=== PATIENT | female | born 1955 | race Caucasian/White ===

== ENCOUNTER 2019-04-13 07:13 | Day surgery (SDC) | payer OTHER ==
--- OUTSIDE RECORDS SUMMARY | 2019-04-13 07:16 | XMS REPORT | Summary of Care ---
:1955 Author Name SAGE LOZADA M.D. Address [place] [facility] Unavailable , Care Team Providers Name Role Phone ISAIAS JAEGER M.D., SAGE Unavailable Unavailable GRETCHEN Smith, KRISTEN Unavailable Unavailable NICOLE GLEASON, ZAKIYA Mijares Unavailable Unavailable DOUG GLEASON [place], ARIC Almazan Unavailable Unavailable GRETCHEN GLEASON, KRISTEN Carr Unavailable Unavailable LUIZ, SAGE Unavailable Unavailable Unavailable Unavailable Unavailable Functional Status Name Dates Details Functional status health issues are not documented Status: Name Dates Details Cognitive status health issues are not documented Status: Problems Name Dates Details Left elbow pain (719.42, M25.522) Status: Active Lateral epicondylitis of left elbow (726.32, M77.12) Status: Active Carpal tunnel syndrome of left wrist (354.0, G56.02) Status: Active Left knee pain, unspecified chronicity (719.46, M25.562) Status: Active Primary osteoarthritis of left knee (715.16, M17.12) Status: Active 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 Start : 25-Nov-2018 Active Colace 100 MG Oral Capsule TAKE 1 CAPSULE 3 TIMES DAILY. Quantity: 45 Refills: 0 KRISTEN GODINEZ M.D. Start : 25-Nov-2018 Active Allergies and Adverse Reactions Name Dates Details No Known Drug Allergies (Allergy) Status: Active Procedures Procedure Dates Details Procedures not documented Immunization Name Dates Details Immunizations not documented Social History Name Dates Details Unknown if ever smoked Vital Signs Date Test Result Details No Known Vitals to report Results Date Description Value Details [id number] MRI Spine lumbar wo contrast 38741 Spine lumbar wo contrast SEE NOTES Comments: Patient Name: MARGARET JAVIERDOB: 1955; Age: 63 years FemaleMR: [id number]: Spine lumbar wo contrast MRI 04/06/2019 12:52 PM CDTClinical Indication: M54.16 Radiculopathy, lumbar region - M54.16 MRI Radiculopathy, lumbar region.COMPARISON: NoneTECHNIQUE: Multiplanar T1, T2, STIR weighted noncontrast MRI of the lumbarspine is performed on the 1.5 Adrienne magnet.FINDINGS:ALIGNMENT AND GENERAL ASSESSM ENT: Anterolisthesis of L3 on L4 measures 2.8 mm.Moderate disc degenerative changes at L3-L4. Moderate to severe discdegenerative changes with reactive endplate edema at L4-L5 There is nocompression fra cture. The anterior and posterior paraspinal soft tissues arenormal. The conus medullaris ends at the L1 level. For the sake ofnomenclature, five lumbar vertebrae are assumed.DISC SPACES:T12-L1: The di sc is normal. There is no central canal stenosis. There is noforaminal stenosis. The facet joints are normal.L1-L2: The disc is normal. There is no central canal stenosis. There is noforaminal sten osis. The facet joints are normal.L2-L3: The disc is normal. There is no central canal stenosis. There is noforaminal stenosis. The facet joints are normal.L3-L4: . Congenitally shortened pedicles and mild facet degenerative changes.Severe spinal canal stenosis. Spinal measures 5.2 mm. Diffuse disc uncoveringfrom anterolisthesis. Mild to moderate bilateral foraminal narrowing.L4-L5: Posterior disc b ulge asymmetric to the right. This extends into theright foramen. Bilateral recess stenosis worse on the right. Congenitally shortpedicles with moderate facet arthropathy. Severe spinal canal stenosis. Spinalmeasures 5.7 mm. Moderate left foraminal narrowing. Severe right foraminalnarrowing.L5-S1: Shallow posterior disc bulge. No spinal canal stenosis. Mild bilateralforaminal narrowing. Facet joints a re unremarkable.IMPRESSION:1. Severe spinal canal stenosis at L3-L4 and L4-L5.2. Congenital spinal canal stenosis with facet arthropathy at L3-L4 and L4-L5.3. Moderate left and severe right foraminal narrowing at L4-L5.SL: SIVAKUMAR--Read by: Chidi Hoictated Date/time: 04/06/19 13:55Electronically Signed by: Chidi Ho MD 04/06/1914:11FINAL REPORT Plan of Care Name Dates Details Planned Observations Planned Goals not documented Planned Encounters Pain Management Referral Appointment; ARIC CAMACHO M.D. On: 22-Apr-2019 11:00 Interventions Provided PlanPatient Education/Instructions: Patient Education Provided Reassurance MRI report reviewed and finding discussed with patient and family. Patient/Parent to call or return with any abnormal changes Orders: Referrals: Refer to: Dr. Mendel Faulkner, Dr. Gita Broderick. Refer to: Referral to a body technician/painter was provided. Reason: Evaluate and treat. Further evaluation. Follow Up: Return to the clinic in 6 weeks or as needed.Spinal stenosis:CLBP not resolved with PT or NSAIDs, no urinary or bowel symptoms- F/u with Dr. Faulkner for lumbar BINH- Pt with Medrol pack at home, will take after her colonoscopy in a few days- If no improvement f/u with Ortho spinal surgery for eval Instructions Name Dates Details Instructions not documented Encounters Appointment; KRISTEN GODINEZ M.D. On: 12-Oct-2018 10:00 Encounter Diagnosis: Problem not documented Appointment; MIMI MASON M.D. On: 27-Oct-2018 10:00 Encounter Diagnosis: Problem not documented Appointment; KRISTEN GODINEZ M.D. On: 16-Nov-2018 11:30 Encounter Diagnosis: Problem not documented Appointment; KRISTEN GODINEZ M.D. On: 25-Nov-2018 14:00 Encounter Diagnosis: Problem not documented Appointment; KRISTEN GODINEZ M.D. On: 09-Dec-2018 9:30 Encounter Diagnosis: Problem not documented Appointment; SAGE LOZADA M.D. On: 13-Jan-2019 13:15 Encounter Diagnosis: Problem not documented Appointment; ARIC CAMACHO M.D. On: 21-Jan-2019 13:15 Encounter Diagnosis: Problem not documented Appointment; SAGE LOZADA M.D. On: 21-Mar-2019 11:45 Encounter Diagnosis: Problem not documented Appointment; SAGE LOZADA M.D. On: 12-Apr-2019 10:45 Encounter Diagnosis: Problem not documented
--- OUTSIDE RECORDS SUMMARY | 2019-04-13 07:16 | XMS REPORT ---
:1955 Author Organization [facility] Address [address] [place] [address] [address] [place] [address] Care Team Providers Name Role Phone Unavailable Unavailable Unavailable Payers Payer Name Policy Type Policy Number Effective Date Expiration Date Problems This patient has no known problems. Allergies, Adverse Reactions, Alerts Allergy Allergy Status Severity Reaction(s) Onset Inactive Treating Comments Name Type Date Date Clinician No Known DA Active U 2018-07 Allergies -03 00:00:0 0 Medications This patient has no known medications.
[2019-04-13] MEDS ORDERED: NA CHLORIDE 0.9% 1,000 ML ONE ×2 (07:58→09:22)
[2019-04-13] MEDS ORDERED: PROPOFOL 200 MG/20 ML VIAL IV ONE ×2 (08:04→09:42)
[2019-04-13] MEDS ORDERED: LIDOCAINE 1% MPF 5 ML VIAL ONE (08:04)
--- NOTE | 2019-04-13 09:42 | ENDO RPT ---
[address], [address] EGD PROCEDURE REPORT EXAM DATE: 04/13/2019 PATIENT NAME: Lola Copeland MR#: [id number] BIRTHDATE: 1955 ATTENDING: Brennan Basilio DR STATUS: outpatient SEAT JOINER CHAINSTITCH: Jax Lazaro and Edyta Blackwell RN INDICATIONS: The patient is a 63 yr old Female here for an EGD due to GERD and epigastric pain PROCEDURE PERFORMED: EGD with biopsy for H. pylori MEDICATIONS: Per Anesthesia. TOPICAL ANESTHETIC: none CONSENT: The patient understands the risks and benefits of the procedure and understands that these risks include, but are not limited to: sedation, allergic reaction, infection, perforation and/or bleeding. Alternative means of evaluation and treatment include, among others: physical exam, x-rays, and/or surgical intervention. The patient elects to proceed with this endoscopic procedure. DESCRIPTION OF PROCEDURE: During intra-op preparation period all mechanical medical equipment was checked for proper function. Hand hygiene and appropriate measures for infection prevention was taken. Procedure, possible complications, and alternatives including but not limited to the possibility of bleeding, perforation, tear, infection, sepsis, need for surgery, need for blood transfusion, and anesthesia related complications were explained to the patient. After the risks, benefits and alternatives of the procedure were thoroughly explained, Informed consent was verified, confirmed and timeout was successfully executed by the treatment team. The patient was placed in the left lateral position. The patient was anesthetized with topical anesthesia. Through the anesthetized oropharyngeal area, the scope was passed without any difficulty. The EC-[id number] ([id number]) and [id number] ([id number]) endoscope was introduced through the mouth and advanced to the second portion of the duodenum. Retroflexed views revealed an erosion. The gastroscope was then slowly withdrawn and removed. Multiple erosions were found in the total stomach. A biopsy for H. pylori was taken. Multiple biopsies were obtained and sent to pathology. Duodenitis was found in the bulb and descending duodenum. A biopsy for H. pylori was taken. Multiple biopsies were obtained and sent to pathology. LA Class A esophagitis was found in the gastroesophageal junction. With standard forceps, a biopsy was obtained and sent to pathology. Multiple ulcers were found in the body and the antrum of the stomach. A biopsy for H. pylori was taken. ADVERSE EVENTS: There were no complications. IMPRESSIONS: 1. Multiple erosions were found in the total stomach 2. Duodenitis was found in the bulb and descending duodenum 3. LA Class A esophagitis was found in the gastroesophageal junction 4. Multiple ulcers were found in the body and the antrum of the stomach RECOMMENDATIONS: 1. acid suppression therapy 2. anti-reflux regimen 3. await biopsy results 4. follow-up: office 2 week(s) 5. avoid NSAIDS 6. follow-up of helicobacter pylori status, treat if indicated REPEAT EXAM: Brennan Basilio DR eSigned: Brennan Basilio DR 04/13/2019 9:41 AM cc: CPT CODES: ICD9 CODES: PATIENT NAME: Lola Copeland MR#: [id number]
--- NOTE | 2019-04-13 09:48 | ENDO RPT ---
[address], [address] COLONOSCOPY PROCEDURE REPORT EXAM DATE: 04/13/2019 PATIENT NAME: Lola Copeland MR #: [id number] BIRTHDATE: 1955 ATTENDING: Brennan Basilio DR STATUS: outpatient GAS TREATER: Jax Lazaro and Edyta Blackwell RN INDICATIONS: The patient is a 63 yr old Female here for a colonoscopy due to colon cancer screening PROCEDURE PERFORMED: Colonoscopy with biopsy - cold polypectomy MEDICATIONS: Per Anesthesia. ESTIMATED BLOOD LOSS: None CONSENT: The patient understands the risks and benefits of the procedure and understands that these risks include, but are not limited to: sedation, allergic reaction, infection, perforation and/or bleeding. Alternative means of evaluation and treatment include, among others: physical exam, x-rays, and/or surgical intervention. The patient elects to proceed with this endoscopic procedure. DESCRIPTION OF PROCEDURE: During intra-op preparation period all mechanical medical equipment was checked for proper function. Hand hygiene and appropriate measures for infection prevention was taken. Procedure, possible complications, alternatives including, but not limited to possibility of bleeding, perforation, tear, infection, sepsis, need for surgery, need for blood transfusion, were explained to the patient. After the risks, benefits and alternatives of the procedure were thoroughly explained, Informed consent was verified, confirmed and timeout was successfully executed by the treatment team. The patient was placed in the left lateral position. A digital rectal exam was performed and revealed internal hemorrhoids and A digital rectal exam was performed and revealed external hemorrhoids. After appropriate level of anesthesia, the scope was passed. The EC--[id number] ([id number]) endoscope was introduced through the anus and advanced to the cecum, which was identified by both the appendix and ileocecal valve. The quality of the prep was fair. The instrument was then slowly withdrawn as the colon was fully examined. Scope withdrawal time was 15 minutes. COLON FINDINGS: Multiple small medium sized smooth sessile polyps with friable surfaces were found in the transverse colon, at the splenic flexure, and in the rectosigmoid colon. A polypectomy was performed with cold forceps and with a cold snare. The resection was complete, the polyp tissue was completely retrieved and sent to histology. Moderate sized internal and external hemorrhoids were found. Retroflexed views revealed no abnormalities. The scope was then completely withdrawn from the patient and the procedure terminated. ADVERSE EVENTS: There were no complications. IMPRESSIONS: 1. Multiple small medium sized sessile polyps were found in the transverse colon, at the splenic flexure, and in the rectosigmoid colon; polypectomy was performed in a piecemeal fashion with cold forceps and with a cold snare 2. Moderate sized internal and external hemorrhoids RECOMMENDATIONS: 1. avoid NSAIDS for 2 weeks 2. await biopsy results 3. fiber rich diet 4. follow-up: office 2 week(s) 5. Monitor for any evidence of rectal bleeding. 6. hemorrhoidal hygiene 7. yearly hemoquant 8. increase dietary water RECALL: Return in 2 year(s) for Colonoscopy, pending biopsy results. Pending Biopsy Results Brennan Basilio DR eSigned: Brennan Basilio DR 04/13/2019 9:48 AM cc: CPT CODES: ICD9 CODES: PATIENT NAME: Lola Copeland MR#: [id number]
[2019-04-13 11:54] VITALS: BP 123/83; TEMP 98; O2SAT 100
== END 2019-04-13 10:12 | disposition home or self-care (01) ==
LOC: OR 07:13
PROVIDERS: ATTEND Surgery
PROC: 0DB98ZX Excision of Duodenum, Via Natural or Artificial Opening Endoscopic, Diagnostic (ICD-10-PCS; 2019-04-13)
PROC: 0DB78ZX Excision of Stomach, Pylorus, Via Natural or Artificial Opening Endoscopic, Diagnostic (ICD-10-PCS; 2019-04-13)
PROC: 0DB68ZX Excision of Stomach, Via Natural or Artificial Opening Endoscopic, Diagnostic (ICD-10-PCS; 2019-04-13)
PROC: 0DB48ZX Excision of Esophagogastric Junction, Via Natural or Artificial Opening Endoscopic, Diagnostic (ICD-10-PCS; 2019-04-13)
PROC: 0DBL8ZX Excision of Transverse Colon, Via Natural or Artificial Opening Endoscopic, Diagnostic (ICD-10-PCS; principal; 2019-04-13 08:30)
PROC: 0DBN8ZX Excision of Sigmoid Colon, Via Natural or Artificial Opening Endoscopic, Diagnostic (ICD-10-PCS; 2019-04-13 08:30)
DX: K21.0 Gastro-esophageal reflux disease with esophagitis (principal); K29.50 Unspecified chronic gastritis without bleeding; K25.9 Gastric ulcer, unspecified as acute or chronic, without hemorrhage or perforation; K29.80 Duodenitis without bleeding; D12.3 Benign neoplasm of transverse colon; D12.4 Benign neoplasm of descending colon; D12.7 Benign neoplasm of rectosigmoid junction; K64.8 Other hemorrhoids; K64.4 Residual hemorrhoidal skin tags; E11.9 Type 2 diabetes mellitus without complications; E78.00 Pure hypercholesterolemia, unspecified; Z86.010 Personal history of colon polyps; Z79.82 Long term (current) use of aspirin; F17.200 Nicotine dependence, unspecified, uncomplicated; Z91.02 Food additives allergy status
CPT/HCPCS: 45380; 45385; 43239; 88312; 88313; 82962 ×2; 88305; J2704 ×2; J7030 ×2

== ENCOUNTER 2021-08-09 03:49 | Emergency (ER) | payer OTHER ==
--- OUTSIDE RECORDS SUMMARY | 2021-08-09 03:56 | XMS REPORT | Continuity of Care Document ---
:1955 Author Organization [facility] t Address [address] [place] [address] Care Team Providers Name Role Phone Joby Dyllan Primary Care Physician YANCY Attending Clinician Unavailable Carrie HAINES Attending Clinician Unavailable Brenton GLEASON, Not In Attending Clinician Unavailable Jaimee FLANAGAN Attending Clinician Unavailable Андрей FLANAGAN Attending Clinician Unavailable Angelina GLEASON Attending Clinician JESSIE JAIN Attending Clinician Unavailable Graham Sutton DO Attending Clinician Doctor Unassigned, Name Attending Clinician Unavailable TEGAN Attending Clinician Unavailable Celi GLEASON Attending Clinician CELI Attending Clinician Unavailable DOUG Attending Clinician Unavailable ISAIAS JAEGER Attending Clinician Unavailable GRETCHEN Attending Clinician Unavailable MARLON Attending Clinician Unavailable Payers Payer Name Policy Type Policy Number Effective Date Expiration Date Lilly lieberman [facility] MEDIC[facility] [id number] 2020 ADVANTAGE 00:00:00 Problems Condition Condition Condition Status Onset Resolution Last Treating Co mments Source Name Details Category Date Date Treatment Clinician Date Calcific Calcific Disease Active [facility] Achilles Achilles 8-25 Health tendinitis tendinitis 00:00: of left of left 00 lower lower extremity extremity Left foot Left foot Disease Active [facility] pain pain 8-25 Health 00:00: 00 Tibial Tibial Disease Active [facility] plateau plateau 2-24 ity of fracture fracture 00:00: [place] [facility] Tibial Tibial Disease Active [facility] plateau plateau 2-23 [place] of fracture[place], [place], [place] [facility] closed, closed, Branch initial initial encounter encounter Type 2 Type 2 Disease Active [facility] diabetes diabetes 2-20 ity of mellitus mellitus 00:00: [place] with stage with stage 00 Me dical 3 chronic 3 chronic Bran ch kidney kidney disease, disease, with with long-term long-term current current use of use of insulin insulin Dyslipidem Dyslipidem Disease Active U nivers ia ia 2-20 ity of 00:00: [place] 00 [facility] Coronary Coronary Disease Active Unive rs artery artery 2-20 ity of disease disease 00:00: [place] involving involving 00 Medi cheng [place] Branch heart heart without without angina angina pectoris, pectoris, unspecifie unspecifie d vessel d vessel or lesion or lesion type type Left elbow Left elbow Problem Active U nivers pain pain ity of [place] [facility] ans Lateral Lateral Problem Active [facility] epicondyli epicondyli it y of tis of tis of [place] left elbow left elbow Ph ysici ans Carpal Carpal Problem Active [facility] tunnel tunnel ity of syndrome syndrome [place] of left of left Physici wrist wrist ans Left knee Left knee Problem Active Uni vers pain, pain, it[place] of [place]spec[place]spec[place]ie [place] [facility] chronicity chronicity an s Primary Primary Problem Active Univers osteoarthr osteoarthr it y of itis of itis of [place] left knee left knee Phys ici ans Lumbar Lumbar Problem Active [facility] adjacent adjacent ity of segment segment [place] disease disease Physici with with ans spondyloli spondyloli sthesis sthesis Lumbar Lumbar Problem Active [facility] radiculopa radiculopa it y of thy thy [place] [facility] ans Lumbar Lumbar Problem Active [facility] foraminal foraminal ity of stenosis stenosis [place] [facility] [place] Problem Active [facility] spinal spinal ity of stenosis stenosis [place] [facility] Encounter Encounter Problem Active Uni vers for for ity of administra administra [place] of tion of Physici COVID-19 COVID-19 ans vaccine vaccine Allergies, Adverse Reactions, Alerts Allergy Allergy Status Severity Reaction(s) Onset Inactive Treating Comm ents Source Name Type Date Date Clinician Erythrom Allergy Active Other [facility] ycin to 6-22 reaction( Health substanc 00:00: s): e 00 Nausea Methocar Allergy Active Other [facility] bamol to 6-22 reaction( Health substanc 00:00: s): e 00 Terrors No Known DA Active U 2017-08 [facility] Allergie 09-02 Clear s 00:00: [place] 00 [facility] STATINS- Drug Active Unknown-Cmnt Un donna HMG-COA Class 2-20 ity of REDUCTAS 00:00: [place] E 00 Medical INHIBITO Branch RS Statins- Propensi Active Unknown - Stiffness Univers Hmg-Coa ty to See comments 2-20 ity of Reductas adverse 00:00: [place] e reaction 00 Medical Inhibito s Branch rs Social History Social Habit Start Date Stop Date Quantity Comments Source History SDOH [facility] Alcohol Std Drinks History SDCA [facility] Alcohol Binge Exposure to Not sure [facility] SARS-CoV-2 (event) History SDCA [facility] Alcohol Comment Tobacco use and 2021-04-15 2021-04-15 Smokeless tobacco [facility] exposure 00:00:00 00:00:00 non-user History SDOH 2021-04-15 2021-04-15 1 [facility] Alcohol Frequency 00:00:00 00:00:00 Alcohol intake 2020-09-24 2020-09-24 University 00:00:00 00:00:00 [facility] Sex Ass[birth year] At [birth year] Univers[facility] y of 00:00:00 00:00:00 [place] [facility] Smoking Status Start Date Stop Date Source Never smoked tobacco [facility] Current every day smoker 2020-09-24 00:00:00 [facility] Medications Ordered Filled Start Stop Current Ordering Indication Dosage Frequency Signature Comments Components Source Medication Medication Date Date Medication? Clinician (SIG) Name Name Diclofenac 2020-08 Yes [id number] Q.5D Apply [facility] Sodium 1-04 topically Health (Voltaren) 00:00: 2 (two) 1 % 00 times a external day. gel Diclofenac 2020-08 Yes [id number] Q.5D Apply [facility] Sodium 1-04 topically Health (Voltaren) 00:00: 2 (two) 1 % 00 times a external day. gel HYDROcodone 2020-08- Yes [id number] 1{tbl} Take 1 UT -acetaminop 0-20 10-26 tablet by Koffi brooks ([employer]) 00:00: 04:59 mouth 7.5-325 MG 00 :00 every 4 tablet (four) hours if needed for severe pain for up to 5 days. HYDROcodone 2020-08- Yes [id number] 1{tbl} Take 1 UT -acetaminop 0-20 10-26 tablet by Koffi brooks ([employer]) 00:00: 04:59 mouth 7.5-325 MG 00 :00 every 4 tablet (four) hours if needed for severe pain for up to 5 days. Evolocumab Yes Repatha [facility] (Repatha) 8-25 Syringe Health 140 MG/ML 17:28: 140 mg/mL solution 13 subcutaneo prefilled us syringe syringe Inject by subcutaneo us route. ALPRAZolam Yes Xanax 1 mg U T (Xanax) 1 8-25 tablet Health MG tablet 17:28: Take by 13 oral route. lisinopril Yes QD 1 (one) UT 10 MG 8-25 time each Health tablet 17:28: day. 13 omeprazole Yes 1 (one) UT (PriLOSEC) 8-25 time each Heal th [address] 17:28: day at the capsule 13 same time. Evolocumab Yes Repatha [facility] (Repatha) 8-25 Syringe Health 140 MG/ML 17:28: 140 mg/mL solution 13 subcutaneo prefilled us syringe syringe Inject by subcutaneo us route. ALPRAZolam 2020-0 Yes Xanax 1 mg U T (Xanax) 1 8-25 tablet Health MG tablet 17:28: Take by 13 oral route. lisinopril 2020-0 Yes QD 1 (one) UT 10 MG 8-25 time each Health tablet 17:28: day. 13 omeprazole 2020-0 Yes 1 (one) UT (PriLOSEC) 8-25 time each Heal th [address] 17:28: day at the capsule 13 same time. Evolocumab 2020-0 Yes Repatha [facility] (Repatha) 8-25 Syringe Health 140 MG/ML 17:28: 140 mg/mL solution 13 subcutaneo prefilled us syringe syringe Inject by subcutaneo us route. ALPRAZolam 0 Yes Xanax 1 mg U T (Xanax) 1 8-25 tablet Health MG tablet 17:28: Take by 13 oral route. lisinopril 2020-0 Yes QD 1 (one) UT 10 MG 8-25 time each Health tablet 17:28: day. 13 omeprazole 2020-0 Yes 1 (one) UT (PriLOSEC) 8-25 time each Heal th [address] 17:28: day at the capsule 13 same time. Evolocumab 2020-0 Yes Repatha [facility] (Repatha) 8-25 Syringe Health 140 MG/ML 17:28: 140 mg/mL solution 13 subcutaneo prefilled us syringe syringe Inject by subcutaneo us route. ALPRAZolam 2020-0 Yes Xanax 1 mg U T (Xanax) 1 8-25 tablet Health MG tablet 17:28: Take by 13 oral route. lisinopril 2020-0 Yes QD 1 (one) UT 10 MG 8-25 time each Health tablet 17:28: day. 13 omeprazole 2020-0 Yes 1 (one) UT (PriLOSEC) 8-25 time each Heal th [address] 17:28: day at the capsule 13 same time. Evolocumab 2020-0 Yes Repatha [facility] (Repatha) 8-25 Syringe Health 140 MG/ML 12:28: 140 mg/mL solution 13 subcutaneo prefilled us syringe syringe Inject by subcutaneo us route. ALPRAZolam 2020-0 Yes Xanax 1 mg U T (Xanax) 1 8-25 tablet Health MG tablet 12:28: Take by 13 oral route. lisinopril 1-0 Yes QD 1 (one) UT 10 MG 8-25 time each Health tablet 12:28: day. 13 omeprazole 2020-0 Yes 1 (one) UT (PriLOSEC) 8-25 time each Heal th [address] 12:28: day at the capsule 13 same time. Evolocumab 2020-0 Yes Repatha [facility] (Repatha) 8-25 Syringe Health 140 MG/ML 12:28: 140 mg/mL solution 13 subcutaneo prefilled us syringe syringe Inject by subcutaneo us route. ALPRAZolam 2020-0 Yes Xanax 1 mg U T (Xanax) 1 8-25 tablet Health MG tablet 12:28: Take by 13 oral route. lisinopril 2020-0 Yes QD 1 (one) UT 10 MG 8-25 time each Health tablet 12:28: day. 13 omeprazole 2020-0 Yes 1 (one) UT (PriLOSEC) 8-25 time each Heal th [address] 12:28: day at the capsule 13 same time. Evolocumab 2020-0 Yes Repatha [facility] (Repatha) 8-25 Syringe Health 140 MG/ML 12:28: 140 mg/mL solution 13 subcutaneo prefilled us syringe syringe Inject by subcutaneo us route. ALPRAZolam 0 Yes Xanax 1 mg U T (Xanax) 1 8-25 tablet Health MG tablet 12:28: Take by 13 oral route. lisinopril 2020-0 Yes QD 1 (one) UT 10 MG 8-25 time each Health tablet 12:28: day. 13 omeprazole 2020-0 Yes 1 (one) UT (PriLOSEC) 8-25 time each Heal th [address] 12:28: day at the capsule 13 same time. Evolocumab 2020-0 Yes Repatha [facility] (Repatha) 8-25 Syringe Health 140 MG/ML 12:28: 140 mg/mL solution 13 subcutaneo prefilled us syringe syringe Inject by subcutaneo us route. ALPRAZolam 2020-0 Yes Xanax 1 mg U T (Xanax) 1 8-25 tablet Health MG tablet 12:28: Take by 13 oral route. lisinopril 2020-0 Yes QD 1 (one) UT 10 MG 8-25 time each Health tablet 12:28: day. 13 omeprazole 2020-0 Yes 1 (one) UT (PriLOSEC) 8-25 time each Heal th [address] 12:28: day at the capsule 13 same time. Evolocumab 2020-0 Yes Repatha [facility] (Repatha) 8-25 Syringe Health 140 MG/ML 12:28: 140 mg/mL solution 13 subcutaneo prefilled us syringe syringe Inject by subcutaneo us route. ALPRAZolam 2020-0 Yes Xanax 1 mg U T (Xanax) 1 8-25 tablet Health MG tablet 12:28: Take by 13 oral route. lisinopril 2020-0 Yes QD 1 (one) UT 10 MG 8-25 time each Health tablet 12:28: day. 13 omeprazole 2020-0 Yes 1 (one) UT (PriLOSEC) 8-25 time each Heal th [address] 12:28: day at the capsule 13 same time. Evolocumab 2020-0 Yes Repatha [facility] (Repatha) 8-25 Syringe Health 140 MG/ML 12:28: 140 mg/mL solution 13 subcutaneo prefilled us syringe syringe Inject by subcutaneo us route. ALPRAZolam 2020-0 Yes Xanax 1 mg U T (Xanax) 1 8-25 tablet Health MG tablet 12:28: Take by 13 oral route. lisinopril 2020-0 Yes QD 1 (one) UT 10 MG 8-25 time each Health tablet 12:28: day. 13 omeprazole 2020-0 Yes 1 (one) UT (PriLOSEC) 8-25 time each Heal th [address] 12:28: day at the capsule 13 same time. Evolocumab 2020-0 Yes Repatha [facility] (Repatha) 8-25 Syringe Health 140 MG/ML 12:28: 140 mg/mL solution 13 subcutaneo prefilled us syringe syringe Inject by subcutaneo us route. ALPRAZolam 2020-0 Yes Xanax 1 mg U T (Xanax) 1 8-25 tablet Health MG tablet 12:28: Take by 13 oral route. lisinopril 2020-0 Yes QD 1 (one) UT 10 MG 8-25 time each Health tablet 12:28: day. 13 omeprazole 2020-0 Yes 1 (one) UT (PriLOSEC) 8-25 time each Heal th [address] 12:28: day at the capsule 13 same time. Evolocumab 2020-0 Yes Repatha [facility] (Repatha) 8-25 Syringe Health 140 MG/ML 12:28: 140 mg/mL solution 13 subcutaneo prefilled us syringe syringe Inject by subcutaneo us route. ALPRAZolam 2020-0 Yes Xanax 1 mg U T (Xanax) 1 8-25 tablet Health MG tablet 12:28: Take by 13 oral route. lisinopril 2020-0 Yes QD 1 (one) UT 10 MG 8-25 time each Health tablet 12:28: day. 13 omeprazole 2020-0 Yes 1 (one) UT (PriLOSEC) 8-25 time each Heal th [address] 12:28: day at the capsule 13 same time. Evolocumab 2020-0 Yes Repatha [facility] (Repatha) 8-25 Syringe Health 140 MG/ML 12:28: 140 mg/mL solution 13 subcutaneo prefilled us syringe syringe Inject by subcutaneo us route. ALPRAZolam 2020-0 Yes Xanax 1 mg U T (Xanax) 1 8-25 tablet Health MG tablet 12:28: Take by 13 oral route. lisinopril 2020-0 Yes QD 1 (one) UT 10 MG 8-25 time each Health tablet 12:28: day. 13 omeprazole 2020-0 Yes 1 (one) UT (PriLOSEC) 8-25 time each Heal th [address] 12:28: day at the capsule 13 same time. Evolocumab 2020-0 Yes Repatha [facility] (Repatha) 8-25 Syringe Health 140 MG/ML 12:28: 140 mg/mL solution 13 subcutaneo prefilled us syringe syringe Inject by subcutaneo us route. ALPRAZolam 2020-0 Yes Xanax 1 mg U T (Xanax) 1 8-25 tablet Health MG tablet 12:28: Take by 13 oral route. lisinopril 2020-0 Yes QD 1 (one) UT 10 MG 8-25 time each Health tablet 12:28: day. 13 omeprazole 2020-0 Yes 1 (one) UT (PriLOSEC) 8-25 time each Heal th [address] 12:28: day at the capsule 13 same time. Turmeric 0 Yes Take by UT 500 MG 8-16 mouth. Health capsule 17:03: 57 Biotin 1000 2020-0 Yes 3000ug QD Chew 3,000 UT MCG 8-16 mcg 1 Health chewable 17:03: (one) time tablet 57 each day. Melatonin 2020-0 Yes Take by UT 10 MG 8-16 mouth. Health tablet 17:03: 57 Multiple 0 Yes 1{tbl} QD Take 1 UT Vitamin 8-16 tablet by Health (multivitam 17:03: mouth 1 in) tablet 57 (one) time each day. traMADol Yes Take by UT (Ultram) 50 8-16 mouth. Health MG tablet 17:03: 57 gabapentin 0 Yes Take by UT (Neurontin) 8-16 mouth. Health 600 MG 17:03: tablet 57 Insulin 2020-0 Yes UT Regular 8-16 Health Human 17:03: (NOVOLIN R 57 FLEXPEN IJ) insulin 2020-0 Yes UT NPH-insulin 8-16 Health regular 17:03: (NovoLIN 57 70/30) (70-30) 100 UNIT/ML injection ezetimibe 2020-0 Yes 1 (one) UT (Zetia) 10 8-16 time each Heal th MG tablet 17:03: day at the 57 same time. ALPRAZolam 2020-0 Yes Q12H every 12 UT (Xanax) 1 8-16 (twelve) Health MG tablet 17:03: hours. 57 lisinopril 2020-0 Yes 1 (one) UT 10 MG 8-16 time each Health tablet 17:03: day at the 57 same time. aspirin 2020-0 Yes 1 (one) UT (Aspir-Low) 8-16 time each Hea lth 81 MG EC 17:03: day at the tablet 57 same time. omeprazole 0 Yes 20mg QD Take 20 mg U T (PriLOSEC) 8-16 by mouth 1 Hea lth [address] 17:03: (one) time capsule 57 each day. Do not crush or chew. Garlic 1000 0 Yes Take by UT MG capsule 8-16 mouth. Health 17:03: 57 Turmeric 0 Yes Take by UT 500 MG 8-16 mouth. Health capsule 17:03: 57 Biotin 1000 0 Yes 3000ug QD Chew 3,000 UT MCG 8-16 mcg 1 Health chewable 17:03: (one) time tablet 57 each day. Melatonin 0 Yes Take by UT 10 MG 8-16 mouth. Health tablet 17:03: 57 Multiple 0 Yes 1{tbl} QD Take 1 UT Vitamin 8-16 tablet by Health (multivitam 17:03: mouth 1 in) tablet 57 (one) time each day. traMADol Yes Take by UT (Ultram) 50 8-16 mouth. Health MG tablet 17:03: 57 gabapentin 0 Yes Take by UT (Neurontin) 8-16 mouth. Health 600 MG 17:03: tablet 57 Insulin 0 Yes UT Regular 8-16 Health Human 17:03: (NOVOLIN R 57 FLEXPEN IJ) insulin 0 Yes UT NPH-insulin 8-16 Health regular 17:03: (NovoLIN 57 70/30) (70-30) 100 UNIT/ML injection ezetimibe 0 Yes 1 (one) UT (Zetia) 10 8-16 time each Heal th MG tablet 17:03: day at the 57 same time. ALPRAZolam 0 Yes Q12H every 12 UT (Xanax) 1 8-16 (twelve) Health MG tablet 17:03: hours. 57 lisinopril 0 Yes 1 (one) UT 10 MG 8-16 time each Health tablet 17:03: day at the 57 same time. aspirin 0 Yes 1 (one) UT (Aspir-Low) 8-16 time each Hea lth 81 MG EC 17:03: day at the tablet 57 same time. omeprazole Yes 20mg QD Take 20 mg U T (PriLOSEC) 8-16 by mouth 1 Hea lth [address] 17:03: (one) time capsule 57 each day. Do not crush or chew. Garlic 1000 0 Yes Take by UT MG capsule 8-16 mouth. Health 17:03: 57 Turmeric 0 Yes Take by UT 500 MG 8-16 mouth. Health capsule 17:03: 57 Biotin 1000 0 Yes 3000ug QD Chew 3,000 UT MCG 8-16 mcg 1 Health chewable 17:03: (one) time tablet 57 each day. Melatonin 2020-0 Yes Take by UT 10 MG 8-16 mouth. Health tablet 17:03: 57 Multiple 2020-0 Yes 1{tbl} QD Take 1 UT Vitamin 8-16 tablet by Health (multivitam 17:03: mouth 1 in) tablet 57 (one) time each day. traMADol 0 Yes Take by UT (Ultram) 50 8-16 mouth. Health MG tablet 17:03: 57 gabapentin 0 Yes Take by UT (Neurontin) 8-16 mouth. Health 600 MG 17:03: tablet 57 Insulin 0 Yes UT Regular 8-16 Health Human 17:03: (NOVOLIN R 57 FLEXPEN IJ) insulin 0 Yes UT NPH-insulin 8-16 Health regular 17:03: (NovoLIN 57 70/30) (70-30) 100 UNIT/ML injection ezetimibe 0 Yes 1 (one) UT (Zetia) 10 8-16 time each Heal th MG tablet 17:03: day at the 57 same time. ALPRAZolam 0 Yes Q12H every 12 UT (Xanax) 1 8-16 (twelve) Health MG tablet 17:03: hours. 57 lisinopril 0 Yes 1 (one) UT 10 MG 8-16 time each Health tablet 17:03: day at the 57 same time. aspirin 2020-0 Yes 1 (one) UT (Aspir-Low) 8-16 time each Hea lth 81 MG EC 17:03: day at the tablet 57 same time. omeprazole 0 Yes 20mg QD Take 20 mg U T (PriLOSEC) 8-16 by mouth 1 Hea lth 20 MG 17:03: (one) time capsule 57 each day. Do not crush or chew. Garlic 1000 2021-0 Yes Take by UT MG capsule 8-16 mouth. Health 17:03: 57 Turmeric 0 Yes Take by UT 500 MG 8-16 mouth. Health capsule 17:03: 57 Biotin 1000 0 Yes 3000ug QD Chew 3,000 UT MCG 8-16 mcg 1 Health chewable 17:03: (one) time tablet 57 each day. Melatonin 2020-0 Yes Take by UT 10 MG 8-16 mouth. Health tablet 17:03: 57 Multiple 2020-0 Yes 1{tbl} QD Take 1 UT Vitamin 8-16 tablet by Health (multivitam 17:03: mouth 1 in) tablet 57 (one) time each day. traMADol 0 Yes Take by UT (Ultram) 50 8-16 mouth. Health MG tablet 17:03: 57 gabapentin 0 Yes Take by UT (Neurontin) 8-16 mouth. Health 600 MG 17:03: tablet 57 Insulin 2020-0 Yes UT Regular 8-16 Health Human 17:03: (NOVOLIN R 57 FLEXPEN IJ) insulin 2020-0 Yes UT NPH-insulin 8-16 Health regular 17:03: (NovoLIN 57 70/30) (70-30) 100 UNIT/ML injection ezetimibe 0 Yes 1 (one) UT (Zetia) 10 8-16 time each Heal th MG tablet 17:03: day at the 57 same time. ALPRAZolam 2020-0 Yes Q12H every 12 UT (Xanax) 1 8-16 (twelve) Health MG tablet 17:03: hours. 57 lisinopril 2020-0 Yes 1 (one) UT 10 MG 8-16 time each Health tablet 17:03: day at the 57 same time. aspirin 2020-0 Yes 1 (one) UT (Aspir-Low) 8-16 time each Hea lth 81 MG EC 17:03: day at the tablet 57 same time. omeprazole 2020-0 Yes 20mg QD Take 20 mg U T (PriLOSEC) 8-16 by mouth 1 Hea lth [address] 17:03: (one) time capsule 57 each day. Do not crush or chew. Garlic 1000 0 Yes Take by UT MG capsule 8-16 mouth. Health 17:03: 57 Turmeric 0 Yes Take by UT 500 MG 8-16 mouth. Health capsule 17:03: 57 Biotin 1000 0 Yes 3000ug QD Chew 3,000 UT MCG 8-16 mcg 1 Health chewable 17:03: (one) time tablet 57 each day. Melatonin 0 Yes Take by UT 10 MG 8-16 mouth. Health tablet 17:03: 57 Multiple 2020-0 Yes 1{tbl} QD Take 1 UT Vitamin 8-16 tablet by Health (multivitam 17:03: mouth 1 in) tablet 57 (one) time each day. traMADol 0 Yes Take by UT (Ultram) 50 8-16 mouth. Health MG tablet 17:03: 57 gabapentin 0 Yes Take by UT (Neurontin) 8-16 mouth. Health 600 MG 17:03: tablet 57 Insulin 2020-0 Yes UT Regular 8-16 Health Human 17:03: (NOVOLIN R 57 FLEXPEN IJ) insulin 2020-0 Yes UT NPH-insulin 8-16 Health regular 17:03: (NovoLIN 57 70/30) (70-30) 100 UNIT/ML injection ezetimibe Yes 1 (one) UT (Zetia) 10 8-16 time each Heal th MG tablet 17:03: day at the 57 same time. ALPRAZolam 0 Yes Q12H every 12 UT (Xanax) 1 8-16 (twelve) Health MG tablet 17:03: hours. 57 lisinopril 0 Yes 1 (one) UT 10 MG 8-16 time each Health tablet 17:03: day at the 57 same time. aspirin Yes 1 (one) UT (Aspir-Low) 8-16 time each Hea lth 81 MG EC 17:03: day at the tablet 57 same time. omeprazole 0 Yes 20mg QD Take 20 mg U T (PriLOSEC) 8-16 by mouth 1 Hea lth [address] 17:03: (one) time capsule 57 each day. Do not crush or chew. Garlic 1000 0 Yes Take by UT MG capsule 8-16 mouth. Health 17:03: 57 ezetimibe 2020-0 Yes 1 (one) UT (Zetia) 10 8-16 time each Heal th MG tablet 12:03: day at the 57 same time. ALPRAZolam 2020-0 Yes Q12H every 12 UT (Xanax) 1 8-16 (twelve) Health MG tablet 12:03: hours. 57 lisinopril 0 Yes 1 (one) UT 10 MG 8-16 time each Health tablet 12:03: day at the 57 same time. aspirin 0 Yes 1 (one) UT (Aspir-Low) 8-16 time each Hea lth 81 MG EC 12:03: day at the tablet 57 same time. omeprazole 0 Yes 20mg QD Take 20 mg U T (PriLOSEC) 8-16 by mouth 1 [facility]a lth [address] 12:03: (one) time capsule 57 each day. Do not crush or chew. Garlic 1000 0 Yes Take by UT MG capsule 8-16 mouth. Health 12:03: 57 Turmeric 0 Yes Take by UT 500 MG 8-16 mouth. Health capsule 12:03: 57 Biotin 1000 Yes 3000ug QD Chew 3,000 UT MCG 8-16 mcg 1 Health chewable 12:03: (one) time tablet 57 each day. Melatonin 0 Yes Take by UT 10 MG 8-16 mouth. Health tablet 12:03: 57 Multiple 0 Yes 1{tbl} QD Take 1 UT Vitamin 8-16 tablet by Health (multivitam 12:03: mouth 1 in) tablet 57 (one) time each day. traMADol 0 Yes Take by UT (Ultram) 50 8-16 mouth. Health MG tablet 12:03: 57 gabapentin 0 Yes Take by UT (Neurontin) 8-16 mouth. Health 600 MG 12:03: tablet 57 Insulin 2020-0 Yes UT Regular 8-16 Health Human 12:03: (NOVOLIN R 57 FLEXPEN IJ) insulin 2020-0 Yes UT NPH-insulin 8-16 Health regular 12:03: (NovoLIN 57 70/30) (70-30) 100 UNIT/ML injection ezetimibe 2020-0 Yes 1 (one) UT (Zetia) 10 8-16 time each Heal th MG tablet 12:03: day at the 57 same time. ALPRAZolam 2020-0 Yes Q12H every 12 UT (Xanax) 1 8-16 (twelve) Health MG tablet 12:03: hours. 57 lisinopril 2020-0 Yes 1 (one) UT 10 MG 8-16 time each Health tablet 12:03: day at the 57 same time. aspirin 2020-0 Yes 1 (one) UT (Aspir-Low) 8-16 time each Hea lth 81 MG EC 12:03: day at the tablet 57 same time. omeprazole 2020-0 Yes 20mg QD Take 20 mg U T (PriLOSEC) 8-16 by mouth 1 Hea lth [address] 12:03: (one) time capsule 57 each day. Do not crush or chew. Garlic 1000 0 Yes Take by UT MG capsule 8-16 mouth. Health 12:03: 57 Turmeric 0 Yes Take by UT 500 MG 8-16 mouth. Health capsule 12:03: 57 Biotin 1000 0 Yes 3000ug QD Chew 3,000 UT MCG 8-16 mcg 1 Health chewable 12:03: (one) time tablet 57 each day. Melatonin 2020-0 Yes Take by UT 10 MG 8-16 mouth. Health tablet 12:03: 57 Multiple 2020-0 Yes 1{tbl} QD Take 1 UT Vitamin 8-16 tablet by Health (multivitam 12:03: mouth 1 in) tablet 57 (one) time each day. traMADol 0 Yes Take by UT (Ultram) 50 8-16 mouth. Health MG tablet 12:03: 57 gabapentin 0 Yes Take by UT (Neurontin) 8-16 mouth. Health 600 MG 12:03: tablet 57 Insulin 2020-0 Yes UT Regular 8-16 Health Human 12:03: (NOVOLIN R 57 FLEXPEN IJ) insulin 2020-0 Yes UT NPH-insulin 8-16 Health regular 12:03: (NovoLIN 57 70/30) (70-30) 100 UNIT/ML injection ezetimibe 2020-0 Yes 1 (one) UT (Zetia) 10 8-16 time each Heal th MG tablet 12:03: day at the 57 same time. ALPRAZolam 2020-0 Yes Q12H every 12 UT (Xanax) 1 8-16 (twelve) Health MG tablet 12:03: hours. 57 lisinopril 2020-0 Yes 1 (one) UT 10 MG 8-16 time each Health tablet 12:03: day at the 57 same time. aspirin 2020-0 Yes 1 (one) UT (Aspir-Low) 8-16 time each Hea lth 81 MG EC 12:03: day at the tablet 57 same time. omeprazole 0 Yes 20mg QD Take 20 mg U T (PriLOSEC) 8-16 by mouth 1 Hea lth [address] 12:03: (one) time capsule 57 each day. Do not crush or chew. Garlic 1000 2020-0 Yes Take by UT MG capsule 8-16 mouth. Health 12:03: 57 Turmeric 0 Yes Take by UT 500 MG 8-16 mouth. Health capsule 12:03: 57 Biotin 1000 0 Yes 3000ug QD Chew 3,000 UT MCG 8-16 mcg 1 Health chewable 12:03: (one) time tablet 57 each day. Melatonin 2020-0 Yes Take by UT 10 MG 8-16 mouth. Health tablet 12:03: 57 Multiple 2020-0 Yes 1{tbl} QD Take 1 UT Vitamin 8-16 tablet by Health (multivitam 12:03: mouth 1 in) tablet 57 (one) time each day. traMADol 0 Yes Take by UT (Ultram) 50 8-16 mouth. Health MG tablet 12:03: 57 gabapentin 0 Yes Take by UT (Neurontin) 8-16 mouth. Health 600 MG 12:03: tablet 57 Insulin 2020-0 Yes UT Regular 8-16 Health Human 12:03: (NOVOLIN R 57 FLEXPEN IJ) insulin 2020-0 Yes UT NPH-insulin 8-16 Health regular 12:03: (NovoLIN 57 70/30) (70-30) 100 UNIT/ML injection ezetimibe 2020-0 Yes 1 (one) UT (Zetia) 10 8-16 time each Heal th MG tablet 12:03: day at the 57 same time. ALPRAZolam 2020-0 Yes Q12H every 12 UT (Xanax) 1 8-16 (twelve) Health MG tablet 12:03: hours. 57 lisinopril 2020-0 Yes 1 (one) UT 10 MG 8-16 time each Health tablet 12:03: day at the 57 same time. aspirin 2021-0 Yes 1 (one) UT (Aspir-Low) 8-16 time each Hea lth 81 MG EC 12:03: day at the tablet 57 same time. omeprazole 0 Yes 20mg QD Take 20 mg U T (PriLOSEC) 8-16 by mouth 1 [facility]a l[facility] [address] 12:03: (one) time capsule 57 each day. Do not crush or chew. Garlic 1000 0 Yes Take by UT MG capsule 8-16 mouth. Health 12:03: 57 Turmeric 0 Yes Take by UT 500 MG 8-16 mouth. Health capsule 12:03: 57 Biotin 1000 0 Yes 3000ug QD Chew 3,000 UT MCG 8-16 mcg 1 Health chewable 12:03: (one) time tablet 57 each day. Melatonin 0 Yes Take by UT 10 MG 8-16 mouth. Health tablet 12:03: 57 Multiple 0 Yes 1{tbl} QD Take 1 UT Vitamin 8-16 tablet by Health (multivitam 12:03: mouth 1 in) tablet 57 (one) time each day. traMADol Yes Take by UT (Ultram) 50 8-16 mouth. Health MG tablet 12:03: 57 gabapentin 0 Yes Take by UT (Neurontin) 8-16 mouth. Health 600 MG 12:03: tablet 57 Insulin 0 Yes UT Regular 8-16 Health Human 12:03: (NOVOLIN R 57 FLEXPEN IJ) insulin 0 Yes UT NPH-insulin 8-16 Health regular 12:03: (NovoLIN 57 70/30) (70-30) 100 UNIT/ML injection ezetimibe 0 Yes 1 (one) UT (Zetia) 10 8-16 time each Heal th MG tablet 12:03: day at the 57 same time. ALPRAZolam 2020-0 Yes Q12H every 12 UT (Xanax) 1 8-16 (twelve) Health MG tablet 12:03: hours. 57 lisinopril 2020-0 Yes 1 (one) UT 10 MG 8-16 time each Health tablet 12:03: day at the 57 same time. aspirin 2020-0 Yes 1 (one) UT (Aspir-Low) 8-16 time each Hea lth 81 MG EC 12:03: day at the tablet 57 same time. omeprazole 0 Yes 20mg QD Take 20 mg U T (PriLOSEC) 8-16 by mouth 1 [facility]a l[facility] [address] 12:03: (one) time capsule 57 each day. Do not crush or chew. Garlic 1000 0 Yes Take by UT MG capsule 8-16 mouth. Health 12:03: 57 Turmeric 0 Yes Take by UT 500 MG 8-16 mouth. Health capsule 12:03: 57 Biotin 1000 0 Yes 3000ug QD Chew 3,000 UT MCG 8-16 mcg 1 Health chewable 12:03: (one) time tablet 57 each day. Melatonin 2020-0 Yes Take by UT 10 MG 8-16 mouth. Health tablet 12:03: 57 Multiple 2020-0 Yes 1{tbl} QD Take 1 UT Vitamin 8-16 tablet by Health (multivitam 12:03: mouth 1 in) tablet 57 (one) time each day. traMADol 0 Yes Take by UT (Ultram) 50 8-16 mouth. Health MG tablet 12:03: 57 gabapentin 0 Yes Take by UT (Neurontin) 8-16 mouth. Health 600 MG 12:03: tablet 57 Insulin 2020-0 Yes UT Regular 8-16 Health Human 12:03: (NOVOLIN R 57 FLEXPEN IJ) insulin 2020-0 Yes UT NPH-insulin 8-16 Health regular 12:03: (NovoLIN 57 70/30) (70-30) 100 UNIT/ML injection ezetimibe 2020-0 Yes 1 (one) UT (Zetia) 10 8-16 time each Heal th MG tablet 12:03: day at the 57 same time. ALPRAZolam 2020-0 Yes Q12H every 12 UT (Xanax) 1 8-16 (twelve) Health MG tablet 12:03: hours. 57 lisinopril 2020-0 Yes 1 (one) UT 10 MG 8-16 time each Health tablet 12:03: day at the 57 same time. aspirin 2020-0 Yes 1 (one) UT (Aspir-Low) 8-16 time each Hea lth 81 MG EC 12:03: day at the tablet 57 same time. omeprazole 2020-0 Yes 20mg QD Take 20 mg U T (PriLOSEC) 8-16 by mouth 1 [facility] [address] 12:03: (one) time capsule 57 each day. Do not crush or chew. Garlic 1000 0 Yes Take by UT MG capsule 8-16 mouth. Health 12:03: 57 Turmeric 0 Yes Take by UT 500 MG 8-16 mouth. Health capsule 12:03: 57 Biotin 1000 0 Yes 3000ug QD Chew 3,000 UT MCG 8-16 mcg 1 Health chewable 12:03: (one) time tablet 57 each day. Melatonin 0 Yes Take by UT 10 MG 8-16 mouth. Health tablet 12:03: 57 Multiple 0 Yes 1{tbl} QD Take 1 UT Vitamin 8-16 tablet by Health (multivitam 12:03: mouth 1 in) tablet 57 (one) time each day. traMADol Yes Take by UT (Ultram) 50 8-16 mouth. Health MG tablet 12:03: 57 gabapentin 0 Yes Take by UT (Neurontin) 8-16 mouth. Health 600 MG 12:03: tablet 57 Insulin 0 Yes UT Regular 8-16 Health Human 12:03: (NOVOLIN R 57 FLEXPEN IJ) insulin 0 Yes UT NPH-insulin 8-16 Health regular 12:03: (NovoLIN 57 70/30) (70-30) 100 UNIT/ML injection ezetimibe 0 Yes 1 (one) UT (Zetia) 10 8-16 time each Heal th MG tablet 12:03: day at the 57 same time. ALPRAZolam 0 Yes Q12H every 12 UT (Xanax) 1 8-16 (twelve) Health MG tablet 12:03: hours. 57 lisinopril 0 Yes 1 (one) UT 10 MG 8-16 time each Health tablet 12:03: day at the 57 same time. aspirin 2020-0 Yes 1 (one) UT (Aspir-Low) 8-16 time each Hea lth 81 MG EC 12:03: day at the tablet 57 same time. omeprazole 0 Yes 20mg QD Take 20 mg U T (PriLOSEC) 8-16 by mouth 1 [facility] [address] 12:03: (one) time capsule 57 each day. Do not crush or chew. Garlic 1000 Yes Take by UT MG capsule 8-16 mouth. Health 12:03: 57 Turmeric 0 Yes Take by UT 500 MG 8-16 mouth. Health capsule 12:03: 57 Biotin 1000 0 Yes 3000ug QD Chew 3,000 UT MCG 8-16 mcg 1 Health chewable 12:03: (one) time tablet 57 each day. Melatonin 2020-0 Yes Take by UT 10 MG 8-16 mouth. Health tablet 12:03: 57 Multiple 2020-0 Yes 1{tbl} QD Take 1 UT Vitamin 8-16 tablet by Health (multivitam 12:03: mouth 1 in) tablet 57 (one) time each day. traMADol Yes Take by UT (Ultram) 50 8-16 mouth. Health MG tablet 12:03: 57 gabapentin Yes Take by UT (Neurontin) 8-16 mouth. Health 600 MG 12:03: tablet 57 Insulin 0 Yes UT Regular 8-16 Health Human 12:03: (NOVOLIN R 57 FLEXPEN IJ) insulin 0 Yes UT NPH-insulin 8-16 Health regular 12:03: (NovoLIN 57 70/30) (70-30) 100 UNIT/ML injection ezetimibe 0 Yes 1 (one) UT (Zetia) 10 8-16 time each Heal th MG tablet 12:03: day at the 57 same time. ALPRAZolam 0 Yes Q12H every 12 UT (Xanax) 1 8-16 (twelve) Health MG tablet 12:03: hours. 57 lisinopril 2020-0 Yes 1 (one) UT 10 MG 8-16 time each Health tablet 12:03: day at the 57 same time. aspirin 2020-0 Yes 1 (one) UT (Aspir-Low) 8-16 time each Hea lth 81 MG EC 12:03: day at the tablet 57 same time. omeprazole 0 Yes 20mg QD Take 20 mg U T (PriLOSEC) 8-16 by mouth 1 [facility] [address] 12:03: (one) time capsule 57 each day. Do not crush or chew. Garlic 1000 0 Yes Take by UT MG capsule 8-16 mouth. Health 12:03: 57 Turmeric 0 Yes Take by UT 500 MG 8-16 mouth. Health capsule 12:03: 57 Biotin 1000 0 Yes 3000ug QD Chew 3,000 UT MCG 8-16 mcg 1 Health chewable 12:03: (one) time tablet 57 each day. Melatonin 2020-0 Yes Take by UT 10 MG 8-16 mouth. Health tablet 12:03: 57 Multiple 2020-0 Yes 1{tbl} QD Take 1 UT Vitamin 8-16 tablet by Health (multivitam 12:03: mouth 1 in) tablet 57 (one) time each day. traMADol 0 Yes Take by UT (Ultram) 50 8-16 mouth. Health MG tablet 12:03: 57 gabapentin 0 Yes Take by UT (Neurontin) 8-16 mouth. Health 600 MG 12:03: tablet 57 Insulin 0 Yes UT Regular 8-16 Health Human 12:03: (NOVOLIN R 57 FLEXPEN IJ) insulin 0 Yes UT NPH-insulin 8-16 Health regular 12:03: (NovoLIN 57 70/30) (70-30) 100 UNIT/ML injection ezetimibe 0 Yes 1 (one) UT (Zetia) 10 8-16 time each Heal th MG tablet 12:03: day at the 57 same time. ALPRAZolam 2020-0 Yes Q12H every 12 UT (Xanax) 1 8-16 (twelve) Health MG tablet 12:03: hours. 57 lisinopril 0 Yes 1 (one) UT 10 MG 8-16 time each Health tablet 12:03: day at the 57 same time. aspirin 0 Yes 1 (one) UT (Aspir-Low) 8-16 time each Hea lth 81 MG EC 12:03: day at the tablet 57 same time. omeprazole 0 Yes 20mg QD Take 20 mg U T (PriLOSEC) 8-16 by mouth 1 [facility] [address] 12:03: (one) time capsule 57 each day. Do not crush or chew. Garlic 1000 0 Yes Take by UT MG capsule 8-16 mouth. Health 12:03: 57 Turmeric 0 Yes Take by UT 500 MG 8-16 mouth. Health capsule 12:03: 57 Biotin 1000 0 Yes 3000ug QD Chew 3,000 UT MCG 8-16 mcg 1 Health chewable 12:03: (one) time tablet 57 each day. Melatonin 2020-0 Yes Take by UT 10 MG 8-16 mouth. Health tablet 12:03: 57 Multiple 2020-0 Yes 1{tbl} QD Take 1 UT Vitamin 8-16 tablet by Health (multivitam 12:03: mouth 1 in) tablet 57 (one) time each day. traMADol 0 Yes Take by UT (Ultram) 50 8-16 mouth. Health MG tablet 12:03: 57 gabapentin 0 Yes Take by UT (Neurontin) 8-16 mouth. Health 600 MG 12:03: tablet 57 Insulin 0 Yes UT Regular 8-16 Health Human 12:03: (NOVOLIN R 57 FLEXPEN IJ) insulin 2020-0 Yes UT NPH-insulin 8-16 Health regular 12:03: (NovoLIN 57 70/30) (70-30) 100 UNIT/ML injection ezetimibe Yes 1 (one) UT (Zetia) 10 8-16 time each Heal th MG tablet 12:03: day at the 57 same time. ALPRAZolam 0 Yes Q12H every 12 UT (Xanax) 1 8-16 (twelve) Health MG tablet 12:03: hours. 57 lisinopril 0 Yes 1 (one) UT 10 MG 8-16 time each Health tablet 12:03: day at the 57 same time. aspirin Yes 1 (one) UT (Aspir-Low) 8-16 time each Hea lth 81 MG EC 12:03: day at the tablet 57 same time. omeprazole 0 Yes 20mg QD Take 20 mg U T (PriLOSEC) 8-16 by mouth 1 [facility]a [facility] [address] 12:03: (one) time capsule 57 each day. Do not crush or chew. Garlic 1000 0 Yes Take by UT MG capsule 8-16 mouth. Health 12:03: 57 Turmeric 0 Yes Take by UT 500 MG 8-16 mouth. Health capsule 12:03: 57 Biotin 1000 0 Yes 3000ug QD Chew 3,000 UT MCG 8-16 mcg 1 Health chewable 12:03: (one) time tablet 57 each day. Melatonin Yes Take by UT 10 MG 8-16 mouth. Health tablet 12:03: 57 Multiple Yes 1{tbl} QD Take 1 UT Vitamin 8-16 tablet by Health (multivitam 12:03: mouth 1 in) tablet 57 (one) time each day. traMADol Yes Take by UT (Ultram) 50 8-16 mouth. Health MG tablet 12:03: 57 gabapentin Yes Take by UT (Neurontin) 8-16 mouth. Health 600 MG 12:03: tablet 57 Insulin Yes UT Regular 8-16 Health Human 12:03: (NOVOLIN R 57 FLEXPEN IJ) insulin Yes UT NPH-insulin 8-16 Health regular 12:03: (NovoLIN 57 70/30) (70-30) 100 UNIT/ML injection Cyclobenzap Cyclobenzap Yes SAGE Take 1 Univers rine HCl - rine HCl - 9-10 LI-CHRISTOFER tablet by ity of 5 MG Oral 5 MG Oral 00:00: MIL M.D. mouth [place] Tablet Tablet 00 twice a Physici day ans Ondansetron Ondansetron Yes KRISTEN 1 Q12H TAKE 1 Univers HCl - 8 MG HCl - 8 MG 3-28 MANSOUR TABLET ity of Oral Tablet Oral Tablet 00:00: M.D. Every [place] 00 twelve Physici hours ans Colace 100 Colace 100 Yes KRISTEN Q0.3333D TAKE 1 Univers MG Oral MG Oral 3-28 MANSOUR CAPSULE 3 i ty of Capsule Capsule 00:00: M.D. TIMES [place] 00 DAILY. Physici ans ASPIRIN Yes 81mg Take 81 mg Univ ers (ASPIR-81 6-09 by mouth ity of ORAL) 16:45: daily. [address] MULTIVIT-NM Yes Take by Un donna NERALS/FERR 6-09 mouth ity of OUS FUM 16:45: daily. [place] ([place] [id number] Medical VITAMIN Branch ORAL) FLAXSEED Yes Take by Unive rs OIL (OMEGA 6-09 mouth ity of 3 ORAL) 16:45: daily. [address] VITAMIN K2 Yes 50mg Take 50 mg U nivers ORAL 6-09 by mouth ity of 16:45: daily. [address] FAMOTIDINE Yes Take by Uni vers (PEPCID 6-09 mouth ity of ORAL) 16:45: daily. [address] Insulin Yes inject Univers Lisp & Lisp 6-09 under the ity of Prot, Hum, 16:45: skin. 30 [address] as (HUMALOG 40 units in Medical MIX 75-25 AM and 35 Branc h KWIKPEN) units in 100 unit/mL PM (75-25) injection Fenofibrate 2017 Yes 1{tbl} Take 1 Un donna 160 mg 6-09 tablet by ity of tablet 16:45: mouth [place] 40 daily. [facility] ASPIRIN Yes 81mg Take 81 mg Univ ers (ASPIR-81 6-09 by mouth ity of ORAL) 16:45: daily. [address] MULTIVIT-NM Yes Take by Un donna NERALS/FERR 6-09 mouth ity of OUS FUM 16:45: daily. [address] VITAMIN Branch ORAL) FLAXSEED Yes Take by Unive rs OIL (OMEGA 6-09 mouth ity of 3 ORAL) 16:45: daily. [address] VITAMIN K2 Yes 50mg Take 50 mg U nivers ORAL 6-09 by mouth ity of 16:45: daily. [address] FAMOTIDINE Yes Take by Uni vers (PEPCID 6-09 mouth ity of ORAL) 16:45: daily. [address] Insulin Yes inject Univers Lisp & Lisp 6-09 under the ity of Prot, Hum, 16:45: skin. 30 [address] as (HUMALOG 40 units in Medical MIX 75-25 AM and 35 Branc h KWIKPEN) units in 100 unit/mL PM (75-25) injection Fenofibrate 2017- Yes 1{tbl} Take 1 Un donna 160 mg 6-09 tablet by ity of tablet 16:45: mouth [place] 40 daily. [facility] ASPIRIN [address] Yes 81mg Take 81 mg Univ ers (ASPIR-81 6-09 by mouth ity of ORAL) 16:45: daily. [address] MULTIVIT-NM Yes Take by Un donna NERALS/FERR 6-09 mouth ity of OUS FUM 16:45: daily. [place] ([address] VITAMIN [place] ORAL) FLAXSEED 2017- Yes Take by Unive rs OIL (OMEGA 6-09 mouth ity of 3 ORAL) 16:45: daily. [address] VITAMIN K2 Yes 50mg Take 50 mg U nivers ORAL 6-09 by mouth ity of 16:45: daily. [address] FAMOTIDINE Yes Take by Uni vers (PEPCID 6-09 mouth ity of ORAL) 16:45: daily. [address] Insulin Yes inject Univers Lisp & Lisp 6-09 under the ity of Prot, Hum, 16:45: skin. 30 [address] as (HUMALOG 40 units in Medical MIX 75-25 AM and 35 Branc h KWIKPEN) units in 100 unit/mL PM (75-25) injection Fenofibrate Yes 1{tbl} Take 1 Un donna 160 mg 6-09 tablet by ity of tablet 16:45: mouth [place] [id number] [facility] ASPIRIN Yes 81mg Take 81 mg Univ ers (ASPIR-81 6-09 by mouth ity of ORAL) 16:45: daily. [address] MULTIVIT-NM Yes Take by Un donna NERALS/FERR 6-09 mouth ity of OUS FUM 16:45: daily. [place] ([address] VITAMIN [place] ORAL) FLAXSEED Yes Take by Unive rs OIL (OMEGA 6-09 mouth ity of 3 ORAL) 16:45: daily. [address] VITAMIN K2 Yes 50mg Take 50 mg U nivers ORAL 6-09 by mouth ity of 16:45: daily. [address] FAMOTIDINE Yes Take by Uni vers (PEPCID 6-09 mouth ity of ORAL) 16:45: daily. [address] Insulin Yes inject Univers Lisp & Lisp 6-09 under the ity of Prot, Hum, 16:45: skin. 30 [place] as (HUMALOG 40 units in Medical MIX 75-25 AM and 35 Branc h KWIKPEN) units in 100 unit/mL PM (75-25) injection Fenofibrate 2016-0 Yes 1{tbl} Take 1 Un donna 160 mg 6-09 tablet by ity of tablet 16:45: mouth [place] 40 daily. [facility] ASPIRIN 2017-0 Yes 81mg Take 81 mg Univ ers (ASPIR-81 6-09 by mouth ity of ORAL) 16:45: daily. [address] MULTIVIT-NM Yes Take by Un donna NERALS/FERR 6-09 mouth ity of OUS FUM 16:45: daily. [place] ([address] VITAMIN [place] ORAL) FLAXSEED Yes Take by Unive rs OIL (OMEGA 6-09 mouth ity of 3 ORAL) 16:45: daily. [address] VITAMIN K2 Yes 50mg Take 50 mg U nivers ORAL 6-09 by mouth ity of 16:45: daily. [address] FAMOTIDINE Yes Take by Uni vers (PEPCID 6-09 mouth ity of ORAL) 16:45: daily. [address] Insulin Yes inject Univers Lisp & Lisp 6-09 under the ity of Prot, Hum, 16:45: skin. 30 [place] as (HUMALOG 40 units in Medical MIX 75-25 AM and 35 Branc h KWIKPEN) units in 100 unit/mL PM (75-25) injection Fenofibrate Yes 1{tbl} Take 1 Un donna 160 mg 6-09 tablet by ity of tablet 16:45: mouth [place] 40 daily. [facility] ASPIRIN Yes 81mg Take 81 mg Univ ers (ASPIR-81 6-09 by mouth ity of ORAL) 16:45: daily. [address] MULTIVIT-NM Yes Take by Un donna NERALS/FERR 6-09 mouth ity of OUS FUM 16:45: daily. [place] ([address] VITAMIN Branch ORAL) FLAXSEED Yes Take by Unive rs OIL (OMEGA 6-09 mouth ity of 3 ORAL) 16:45: daily. [address] VITAMIN K2 Yes 50mg Take 50 mg U nivers ORAL 6-09 by mouth ity of 16:45: daily. [address] FAMOTIDINE Yes Take by Uni vers (PEPCID 6-09 mouth ity of ORAL) 16:45: daily. [address] Insulin Yes inject Univers Lisp & Lisp 6-09 under the ity of Prot, Hum, 16:45: skin. 30 [address] as (HUMALOG 40 units in Medical MIX 75-25 AM and 35 Branc h KWIKPEN) units in 100 unit/mL PM (75-25) injection Fenofibrate Yes 1{tbl} Take 1 Un donna 160 mg 6-09 tablet by ity of tablet 16:45: mouth [place] [address] [facility] ASPIRIN 2017 Yes 81mg Take 81 mg Univ ers (ASPIR-81 6-09 by mouth ity of ORAL) 16:45: daily. [address] MULTIVIT-NM 2017 Yes Take by Un donna NERALS/FERR 6-09 mouth ity of OUS FUM 16:45: daily. [place] ([address] VITAMIN Branch ORAL) FLAXSEED Yes Take by Unive rs OIL (OMEGA 6-09 mouth ity of 3 ORAL) 16:45: daily. [address] VITAMIN K2 Yes 50mg Take 50 mg U nivers ORAL 6-09 by mouth ity of 16:45: daily. [address] FAMOTIDINE Yes Take by Uni vers (PEPCID 6-09 mouth ity of ORAL) 16:45: daily. [address] Insulin Yes inject Univers Lisp & Lisp 6-09 under the ity of Prot, Hum, 16:45: skin. 30 [address] as (HUMALOG 40 units in Medical MIX 75-25 AM and 35 Branc h KWIKPEN) units in 100 unit/mL PM (75-25) injection Fenofibrate Yes 1{tbl} Take 1 Un donna 160 mg 6-09 tablet by ity of tablet 16:45: mouth [place] [address] [facility] Melatonin 5 Yes 5mg Take 5 mg U nivers mg tablet 5-30 by mouth ity of 15:51: daily. [address] Melatonin 5 Yes 5mg Take 5 mg U nivers mg tablet 5-30 by mouth ity of 15:51: daily. [address] Melatonin 5 Yes 5mg Take 5 mg U nivers mg tablet 5-30 by mouth ity of 15:51: daily. [address] Melatonin 5 Yes 5mg Take 5 mg U nivers mg tablet 5-30 by mouth ity of 15:51: daily. [address] Melatonin 5 2017-0 Yes 5mg Take 5 mg U nivers mg tablet 5-30 by mouth ity of 15:51: daily. [address] Melatonin 5 2017-0 Yes 5mg Take 5 mg U nivers mg tablet 5-30 by mouth ity of 15:51: daily. [address] Melatonin 5 2017-0 Yes 5mg Take 5 mg U nivers mg tablet 5-30 by mouth ity of 15:51: daily. [address] acetaminoph 2017- Yes 1{tbl} Take 1 Un donna en-codeine 2-26 tablet by ity of (TYLENOL-CO 00:00: mouth [place] DEINE #3) 00 every 4 Medical 300-30 mg (four) Branch tablet hours as needed for Pain (scale 4-6) or Pain (scale 7-10). acetaminoph Yes 1{tbl} Take 1 Un donna en-codeine 2-26 tablet by ity of (TYLENOL-CO 00:00: mouth [place] DEINE #3) 00 every 4 Medical 300-30 mg (four) Branch tablet hours as needed for Pain (scale 4-6) or Pain (scale 7-10). acetaminoph Yes 1{tbl} Take 1 Un donna en-codeine 2-26 tablet by ity of (TYLENOL-CO 00:00: mouth [place] DEINE #3) 00 every 4 Medical 300-30 mg (four) Branch tablet hours as needed for Pain (scale 4-6) or Pain (scale 7-10). acetaminoph 0 Yes 1{tbl} Take 1 Un donna en-codeine 2-26 tablet by ity of (TYLENOL-CO 00:00: mouth [place] DEINE #3) 00 every 4 Medical 300-30 mg (four) Branch tablet hours as needed for Pain (scale 4-6) or Pain (scale 7-10). acetaminoph Yes 1{tbl} Take 1 Un donna en-codeine 2-26 tablet by ity of (TYLENOL-CO 00:00: mouth [place] DEINE #3) 00 every 4 Medical 300-30 mg (four) Branch tablet hours as needed for Pain (scale 4-6) or Pain (scale 7-10). acetaminoph Yes 1{tbl} Take 1 Un donna en-codeine 2-26 tablet by ity of (TYLENOL-CO 00:00: mouth [place] DEINE #3) 00 every 4 Medical 300-30 mg (four) Branch tablet hours as needed for Pain (scale 4-6) or Pain (scale 7-10). acetaminoph Yes 1{tbl} Take 1 Un donna en-codeine 2-26 tablet by ity of (TYLENOL-CO 00:00: mouth [place] DEINE #3) 00 every 4 Medical 300-30 mg (four) Branch tablet hours as needed for Pain (scale 4-6) or Pain (scale 7-10). ALPRAZolam Yes TAKE 1 Unive rs 1 mg tablet 2-14 TABLET BY ity of 00:00: MOUTH TWICE A Medical DAY Branch ALPRAZolam Yes TAKE 1 Unive rs 1 mg tablet 2-14 TABLET BY ity of 00:00: MOUTH TWICE A Medical DAY Branch ALPRAZolam Yes TAKE 1 Unive rs 1 mg tablet 2-14 TABLET BY ity of 00:00: MOUTH TWICE A Medical DAY Branch ALPRAZolam Yes TAKE 1 Unive rs 1 mg tablet 2-14 TABLET BY ity of 00:00: MOUTH TWICE A Medical DAY Branch ALPRAZolam Yes TAKE 1 Unive rs 1 mg tablet 2-14 TABLET BY ity of 00:00: MOUTH TWICE A Medical DAY Branch ALPRAZolam Yes TAKE 1 Unive rs 1 mg tablet 2-14 TABLET BY ity of 00:00: MOUTH TWICE A Medical DAY Branch ALPRAZolam Yes TAKE 1 Unive rs 1 mg tablet 2-14 TABLET BY ity of 00:00: MOUTH TWICE A Medical DAY Branch ZETIA 10 mg Yes 10mg Take 10 mg Univers tablet 1-20 by mouth ity of 00:00: daily. Medical Branch ZETIA 10 mg Yes 10mg Take 10 mg Univers tablet 1-20 by mouth ity of 00:00: daily. Medical Branch ZETIA 10 mg Yes 10mg Take 10 mg Univers tablet 1-20 by mouth ity of 00:00: daily. [place] [facility] ZETIA 10 mg 2016-0 Yes 10mg Take 10 mg Univers tablet 1-20 by mouth ity of 00:00: daily. [place] [facility] ZETIA 10 mg 2017-0 Yes 10mg Take 10 mg Univers tablet 1-20 by mouth ity of 00:00: daily. [place] [facility] ZETIA 10 mg 2016- Yes 10mg Take 10 mg Univers tablet 1-20 by mouth ity of 00:00: daily. [place] [facility] ZETIA 10 mg 2016- Yes 10mg Take 10 mg Univers tablet 1-20 by mouth ity of 00:00: daily. [place] [facility] Immunizations Ordered Immunization Filled Immunization Date Status Commen ts Source Name Name [employer] 2020-10-06 Completed Universit y of COVID-19 Vacc 30 13:49:00 [facility] ysicians MCG/0.3ML Intramuscular Suspension Influenza Virus 2016-10-20 Completed Universit y of Vaccine Quad ID 00:00:00 [place] [facility] 18-64 YRS Branch Influenza Virus 2016-10-20 Completed Universit y of Vaccine Quad ID 00:00:00 [place] [facility] ical 18-64 YRS Branch Influenza Virus 2016-10-20 Completed Universit y of Vaccine Quad ID 00:00:00 [place] [facility] ical 18-64 YRS Branch Influenza Virus 2016-10-20 Completed Universit y of Vaccine Quad ID 00:00:00 [place] [facility] ical 18-64 YRS Branch Influenza Virus 2016-10-20 Completed Universit y of Vaccine Quad ID 00:00:00 [place] [facility] ical 18-64 YRS Branch Influenza Virus 2016-10-20 Completed Universit y of Vaccine Quad ID 00:00:00 [place] [facility] ical 18-64 YRS Branch Influenza Virus 2016-10-20 Completed Universit y of Vaccine Quad ID 00:00:00 [place] [facility] 18-64 YRS Branch Vital Signs Vital Name Observation Time Observation Value Comments Source Body height 2021-04-24 17:22:00 [facility]6 [facility] 2021-04-24 17:22:00 74.844 [facility] BMI 2021-04-24 17:22:00 28.32 kg[facility]m2 [facility] height 2021-04-15 17:03:00 162.6 [facility] 2021-04-15 17:03:00 [facility]111 [facility] 2021-04-15 17:03:00 [facility] 2020-09-24 15:40:00 116 mm[Hg] Univer sity of pressure [place] [facility] Diastolic blood 2020-09-24 15:40:00 75 mm[Hg] Unive rsity of pressure [place] [facility] Heart rate 2020-09-24 15:40:00 89 /min [facility] [place] [facility] Body temperature 2020-09-24 15:40:00 36.06 Ximena Univ ers[facility] of [place] [facility] Respiratory rate 2020-09-24 15:40:00 20 /min Univ ersity of [place] [facility] Body height 2020-09-24 15:40:00 167.6 cm [facility] [place] [facility] Body weight 2020-09-24 15:40:00 77.293 kg [facility] [place] [facility] BMI 2020-09-24 15:40:00 27.50 kg/m2 [facility] [place] [facility] Oxygen saturation in 2020-09-24 15:40:00 98 /min University of Arterial blood by [email or web address] cheng Pulse oximetry Branch Systolic blood 2020-09-24 15:40:00 116 mm[Hg] Univer sity of pressure [place] [facility] Diastolic blood 2020-09-24 15:40:00 75 mm[Hg] Unive rsity of pressure [place] [facility] Heart rate 2020-09-24 15:40:00 89 /min [facility] [place] [facility] Body temperature 2020-09-24 15:40:00 36.06 Ximena Univ ers[facility] [place] [facility] Respiratory rate 2020-09-24 15:40:00 20 /min Univ ersity [facility] [place] [facility] Body height 2020-09-24 15:40:00 167.6 cm [facility] [place] [facility] Body weight 2020-09-24 15:40:00 77.293 kg [facility] [place] [facility] BMI 2020-09-24 15:40:00 27.50 kg/m2 [facility] [place] [facility] Oxygen saturation in 2020-09-24 15:40:00 98 /min University of Arterial blood by [employer] c[facility] Pulse oximetry Branch Height 2019-01-21 14:04:00 64 [in_us] [facility] Physician s Weight 2019-01-21 14:04:00 175.125 [lb_av] [facility] [place] Physician s Body Mass Index 2019-01-21 14:04:00 30.06 kg/m2 [facility] rsity [facility] Physician s Procedures Procedure Date / Time Performing Clinician Source Performed XR KNEE 1-2 VIEWS LEFT 2021-06-19 14:48:00 Samantha Haines [place] [facility] X[facility] FOOT 3+ VIEWS LEFT 2021-04-24 17:17:14 Arturo Alfaro [place] [facility] EXTERNAL PROVIDER 2020-10-25 06:01:00 Doctor Unassigned, No [facility] RECORDS Name [facility] POCT URINALYSIS AUTO 2020-09-24 15:48:00 Femi Alatorre [facility] Branch REFERRAL- 2020-09-14 06:01:00 Doctor Unassigned, No [facility]ONSE Name Medical Branch REFERRAL- 2020-08-31 06:01:00 Doctor Unassigned, No [facility] REQUEST/RESPONSE Name [facility] MRI Spine lumbar wo 2019-03-21 00:00:00 [facility] contrast [id number] Physicians [U] XRAY KNEE 4 OR MORE 2019-01-20 00:00:00 [facility] VWS LEFT [id number] Physicians [U] XRAY SPINE 2019-01-12 00:00:00 [place] o [facility] LUMBOSACRAL 2 OR 3 [facility] Physician s [id number] Post Op Promis 29 2018-12-07 00:00:00 [facility] Survey Physicians [UTP] EMG 2018-10-12 00:00:00 [place] o [facility] Physicians Plan of Care Planned Activity Planned Date Details Comments Source Diagnostic Test 2018-10-26 [UTP] EMG [code = [employer] ity [facility] Pending 00:00:00 [UTP] EMG] Physicians Diagnostic Test 2018-10-12 [UTP] EMG [code = [facility] Pending 00:00:00 [UTP] EMG] Physicians Diagnostic Test 2018-10-12 [UTP] EMG [code = [facility] Pending 00:00:00 [UTP] EMG] Physicians Encounters Start End Encounter Admission Attending Care Care Encounter Source Date/Time Date/Time Type Type Clinicians Facility Department ID 2021-08-07 Outpatient [facility] [id number] [place] 08:39:58 [facility] 2021-07-30 Outpatient [facility] [id number] [place] 12:00:07 [facility] 2021-07-04 Outpatient YANCY [facility] [id number] [place] 11:54:19 [facility] 2021-04-24 Outpatient [facility] [id number] [place] 12:00:00 [facility] 2021-04-08 Outpatient [facility] [id number] [place] 10:16:31 [facility] 2021-08-08 2021-08-[address] [facility] 1.2.840.114 [id number] [place] 13:15:00 13:38:46 Visit Samantha MARQUEZ [id number] H [facility] MEDICAL [id number] PLAZA 0 [id number] 7 2021-07-04 2021-07-[address] [facility] 1.2.840.114 [id number] [place] 11:31:05 11:53:20 Visit Samantha MARQUEZ [id number] H ealt MEDICAL [id number] PLAZA 2 [id number] 7 2021-06-20 2021-06-[address] [facility] [id number] [place] 00:00:00 00:00:00 Samantha MARQUEZ [id number] H [facility] MEDICAL 9.2.7.2.686 PLAZA 2 [id number] 7 2021-06-19 2021-06-19 Outpatient YANCY [facility] [id number] 05:41:00 23:59:00 [facility] 2021-06-19 2021-06-[address] [facility] OP Yancy, EXT MSRDP 1.2.840.114 1 [id number] [place] 06:43:46 08:13:46 Samantha ZAVALA [id number] H ealth [id number] [id number] 1 2021-06-19 2021-06-19 EXT M[facility] IP Radkatyn, EXT MSRDP 1.2.840.114 1 [id number] [place] 00:00:00 00:00:00 Rayraye SALLY [id number] H ealth 9.2.7.2.686 [id number] 0 2021-06-19 2021-06-19 EXT MHH IP System, EXT MSRDP 1.2.840.114 1 [id number] [place] 00:00:00 00:00:00 Provider LOCATION [id number] Health Not In 9.2.7.2.686 [id number] 0 2021-06-19 2021-06-19 Orders Yancy UTP M[facility] 1.2.840.114 [id number] [place] 00:00:00 00:00:00 Only Samantha MARQUEZ [id number] H ealth MEDICAL 9.2.7.2.686 PLAZA 5 [id number] 7 2021-06-12 2021-06-12 Orders Peyton Hermosillo UTP [facility] 1.2.840.114 [id number] [place] 00:00:00 00:00:00 Only Peyton Hermosillo [id number] Health MEDICAL 9.2.7.2.686 PLAZA 5 [id number] 7 2021-05-13 2021-05-13 Office FAINA Haines [facility] 1.2.840.114 [id number] [place] 10:38:32 11:34:06 Visit Samantha MARQUEZ [id number] H ealth MEDICAL 9.2.7.2.686 PLAZA 6 [id number] 7 2021-04-30 2021-04-30 Telephone Amada Chiang [facility] MHH 1.2.840 .114 [id number] [place] 00:00:00 00:00:00 Amada Chiang [id number] Health MEDICAL 9.2.7.2.686 PLAZA 8 [id number] 5 2021-04-25 2021-04-25 Telephone Amada Chiang [facility] MHH 1.2.840 .114 [id number] [place] 00:00:00 00:00:00 Amaad Chiang [id number] [facility] MEDICAL 9.2.7.2.686 PLAZA 4 [id number] 5 2021-04-24 2021-04-[address] [facility] 1.2.840.114 [id number] [place] 11:56:36 16:00:42 Visit Arturo MARQUEZ [id number] H [facility] MEDICAL 9.2.7.2.686 PLAZA 1 [id number] 5 2021-04-15 2021-04-[address] [facility] 1.2.840.114 [id number] [place] 11:21:50 12:40:22 Visit Samantha MARQUEZ [id number] H [facility] MEDICAL 9.2.7.2.686 PLAZA 3 [id number] 7 2020-12-28 2020-12-28 Outpatient CRISTOBAL [facility] MED [id number] BL 07:31:00 15:40:00 LIZZETH 2020-11-15 2020-11-15 Outpatient CRISTOBAL [facility] MED [id number] MHBL 12:00:00 23:59:00 LIZZETH 2020-11-05 2020-11-05 Patient Herman AKJENNIE 1.2.840.114 [id number] 00:00:00 00:00:00 Outreach Ernesto [facility] 350.1.13.10 [place] CARE 4.2.7.2.686 [place] [id number] 2020-11-05 2020-11-05 Patient Herman AKJENNIE 1.2.840.114 [id number] [facility] 00:00:00 00:00:00 Outreach Ernesto PRIMARY [id number] i ty of [place] CARE 4.2.7.2.686 Roseann EASLEY [id number] Oh dical [address] 2020-10-25 2020-10-25 Orders Doctor RAMÓN 1.2.840.114 [id number] 00:00:00 00:00:00 Only Unassigned, VALERY 350.1.13.10 [place] [facility] 4.2.7.2.686 [id number] 2020-10-25 2020-10-25 Orders Doctor RAMÓN 1.2.840.114 [id number] Univers 00:00:00 00:00:00 Only Unassigned, VALERY [id number] ity of [place] [facility] 4.2.7.2.686 Александр as [id number] [address] 2020-10-10 2020-10-10 [facility] [id number] Univers 14:15:00 14:15:00 [facility] [id number] [facility] 2020-09-24 2020-09-24 Office [facility] 1.2.840.114 [id number] 09:15:40 10:17:09 Visit Femi Ramos [id number] [place] 4.2.7.2.686 Professio [id number] [address] 2020-09-24 2020-09-24 Office [facility] 1.2.840.114 [id number] Univers 09:15:40 10:17:09 Visit Femi Ramos 350.1.13.10 i [place] 4.2.7.2.[place] Profess[place] [phone] Oh dical [address] 2020-09-24 2020-09-24 Outpatient R JAVIREPLACED BY [facility] [id number]-20 Univers 09:00:00 09:00:00 FEMI [id number] [facility] 2020-09-24 2020-09-24 Outpatient R KARENHUSSEINREPLACED BY [facility] [id number] Univers 09:00:00 09:00:00 FEMI ity [facility] 2020-09-14 2020-09-14 Orders Doctor MELGAR 1.2.840.114 [id number] Univers 00:00:00 00:00:00 Only Unassigned, VALERY 350.1.13.10 [facility] [place] [facility] 4.2.7.2.686 Александр as [phone] [address] 2020-08-31 2020-08-31 Orders Doctor MELGAR 1.2.840.114 [id number] Univers 00:00:00 00:00:00 Only Unassigned, VALERY [id number] ity of [facility] 4.2.7.2.686 Александр as [phone] [place] [address] Branch 2020-08-14 2020-08-14 Outpatient CRISTOBAL, [facility] MED [id number] [facility] 10:30:00 23:59:00 LIZZETH 2019-04-22 2019-04-22 Appointmen FAINA CAMACHO [facility] [id number] Univers 11:00:00 11:00:00 t; ARIC CAMACHO M.D. [place], [place] Sarah Physici ans 2019-04-12 2019-04-12 Appointmen ISAIAS EISENBERG [facility] [id number] Univers 10:45:00 10:45:00 t; ISAIAS JAEGER, - [place], [place] Sarah CAZARES M.D. ans 2019-03-21 2019-03-21 Appointmen ISAIAS EISENBERG [facility] [id number] Univers 11:45:00 11:45:00 t; ISAIAS JAEGER, - [place], [place] Sarah CAZARES M.D. ans 2019-01-21 2019-01-21 AppointFAINA Cannon [facility] [id number] Univers 13:15:00 13:15:00 t; ARIC CAMACHO M.D. at [place], [place] [facility] Physici ans 2019-01-13 2019-01-13 Appointmen ISAIAS EISENBERG [facility] [id number] Univers 13:15:00 13:15:00 t; ISAIAS JAEGER, at [place], [place] Sarah CAZARES M.D. ans 2018-12-09 2018-12-09 FAINA Farris [facility] [id number] Univers 09:30:00 09:30:00 t; Don PETERSON M.D. [place] Dick PETERSON M.D. ans 2018-11-25 2018-11-25 AppointFAINA Guevara [facility] [id number] Univers 14:00:00 14:00:00 t; nelson PETERSON [facility] Don M.D. [place] Dick PETERSON M.D. ans 2018-11-16 2018-11-16 AppointFAINA Guevara [facility] [id number] Univers 11:30:00 11:30:00 t; Don PETERSON M.D. [place], Physici M.D. ans 2018-10-27 2018-10-27 AppointFAINA Tabares [facility] [id number] Univers 10:00:00 10:00:00 t; MIMI MASON M.D. i ty of [place] LE [place] Dick [facility] 2018-10-12 2018-10-12 AppointFAINA Guevara [facility] [id number] [facility] 10:00:00 10:00:00 t; Don PETERSON M.D. [place], Physici M.D. ans Results Test Description Test Time Test Comments Results Result Sourc e Comments XR foot 3+ views 2021-04-24 3 views of the [facility] left 17:54:18 left foot taken in clinic today reviewed by me. Images are negative for acute fracture dislocation or injury. She does have some small areas of calcific buildup at the insertion of the Achilles tendon on the calcaneus. POCT URINALYSIS, INSTRUMENT 2020-09-24 15:51:00 Test Item Value Reference Range Interpretation Comme nts POCT U SP GRAV (test code = 3255) 1.005 mg/dl 1.005-1.025 POCT PH U (test code = 3254) 6.0 mg/dl 5-8 POCT U LEUK EST (test code = 3263) small Negative - Negative POCT U NIT (test code = 3262) Negative Negative - Negative POCT U PROT (test code = 3259) Negative Negative - Negative POCT U GLU (test code = 3256) Negative Negative - Negative POCT U KETONE (test code = 3258) Negative Negative - Negative POCT U UROBILI (test code = 3260) 0.2 mg/dl 0.2-1 POCT U BILI (test code = 3261) Negative Negative - Negative POCT U BLD (test code = 3257) Negative Negative - Negative POCT U COLOR (test code = 3266) yellow POCT U APPEAR (test code = 3267) clear Lab Interpretation (test code = 91309-1) [facility] [id number] 15:51:00 Test Item Value Reference Range Interpretation Comments POCT U SP GRAV (test code = 1.005 mg/dl 1.005-1.025 3255) POCT PH U (test code = 3254) 6.0 mg/dl 5-8 POCT U LEUK EST (test code = small Negative - Negative 3263) POCT U NIT (test code = 3262) Negative Negative - Negative POCT U PROT (test code = Negative Negative - Negative 3259) POCT U GLU (test code = 3256) Negative Negative - Negative POCT U KETONE (test code = Negative Negative - Negative 3258) POCT U UROBILI (test code = 0.2 mg/dl 0.2-1 3260) POCT U BILI (test code = Negative Negative - Negative 3261) POCT U BLD (test code = 3257) Negative Negative - Negative POCT U COLOR (test code = yellow 3266) POCT U APPEAR (test code = clear 3267) Lab Interpretation (test code Abnormal = 12528-4) [facility] [id number] 15:51:00 Test Item Value Reference Range Interpretation Comments POCT U SP GRAV (test code = 1.005 mg/dl 1.005-1.025 3255) POCT PH U (test code = 3254) 6.0 mg/dl 5-8 POCT U LEUK EST (test code = small Negative - Negative 3263) POCT U NIT (test code = 3262) Negative Negative - Negative POCT U PROT (test code = Negative Negative - Negative 3259) POCT U GLU (test code = 3256) Negative Negative - Negative POCT U KETONE (test code = Negative Negative - Negative 3258) POCT U UROBILI (test code = 0.2 mg/dl 0.2-1 3260) POCT U BILI (test code = Negative Negative - Negative 3261) POCT U BLD (test code = 3257) Negative Negative - Negative POCT U COLOR (test code = yellow 3266) POCT U APPEAR (test code = clear 3267) Lab Interpretation (test code Abnormal = 58259-5) [facility] Spine lumbar wo contrast [id number] 12:52:00Patient Name: MARGARET STONER: 1955; Age: 63 years FemaleMR: [id number]: Spine lumbar wocontrast MRI 04/06/2019 12:52 PM CDTClinical Indication: M54.16 Radiculopathy, lumbar region - M54.16 Radiculopathy, lumbar region.COMPARISON: NoneTECHNIQUE: Multiplanar T1, T2, STIR weighted noncontrast MRI of the lumbarspine is performed on the 1.5 Adrienne magnet.FINDINGS:ALIGNMENT AND GENERAL ASSESSMENT: Anterolisthesis of L3 on L4 measures 2.8 mm.Moderate disc degenerative changes at L3-L4. Moderate to severe discdegenerative changes with reactive endplate edema at L4-L5 There is nocompression fracture. The anterior and posterior paraspinal soft tissues arenormal. The conus medullaris ends at the L1 level. For the sake ofnomenclature, five lumbar vertebrae are assumed.DISC SPACES:T12-L1: The disc is normal. There is no central canal stenosis. There is noforaminal stenosis. The facet jointsare normal.L1-L2: The disc is normal. There is no central canal stenosis. There is noforaminal stenosis. The facet joints are normal.L2-L3: The disc is normal. There is no central canal stenosis. There is noforaminal stenosis. The facet joints are normal.L3-L4: . Congenitally shortened pedicles and mild facet degenerative changes.Severe spinal canal stenosis. Spinal measures 5.2 mm. Diffuse disc uncoveringfrom anterolisthesis. Mild to moderate bilateral foraminal narrowing.L4-L5: Posterior disc bulge asymmetric to the right. This extends into theright foramen. Bilateral recess stenosis worse onthe right. Congenitally shortpedicles with moderate facet arthropathy. Severe spinal canal stenosis.Spinalmeasures 5.7 mm. Moderate left foraminal narrowing. Severe right foraminalnarrowing.L5-S1: Shallow posterior disc bulge. No spinal canal stenosis. Mild bilateralforaminal narrowing. Facet joints are unremarkable.IMPRESSION:1. Severe spinal canal stenosis at L3-L4 and L4-L5.2. 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 Moderate left and severe right foraminal narrowing at L4-L5.SL: SIVAKUMAR--Read by: Chidi Ho MDDictated Date/time: 04/06/19 13:55Electronically Signed by: Chidi Ho MD 04/06/1914:11FINAL REPORTUn[facility][U] XRAY KNEE 4 OR MORE VWS LEFT [id number] 13:15:00Images acquired, not reported on this accession number.[facility][U] XRAY SPINE LUMBOSACRAL 2 OR 3 VWS [id number] 13:04:00Images acquired, not reported on this accession number. [facility] Phys[facility][U] XRAY ELBOW MIN 3 VWS LEFT [id number] 09:20:00Images acquired, not reported on this accession number.[facility] Physicians
[2021-08-09] MEDS ORDERED: LIDOCAINE VISCOUS 2% SOLN 15 ML UDC ONE (04:15)
[2021-08-09] MEDS ORDERED: MAGNES/ALUMIN/SIMET 30ML UCUP ONE (04:15)
[2021-08-09 04:38] LABS: Absolute Lymphocytes (CBC) 3.1 K/uL (0.7-4.9); Basophils % 0.8 % (0-1.3); Hematocrit 40.7 % (36.0-45.0); Lymphocytes % 45.4 % (15.3-44.8); MPV 8.7 fL (7.6-11.3); RBC Red Blood Cell Count 4.45 M/uL (3.86-4.86)
[2021-08-09 04:40] LABS: Protime INR 1.03
[2021-08-09 04:58] LABS: ALT/SGPT 34 U/L (12-78); AST/SGOT 20 U/L (15-37); Albumin 3.2 g/dL (3.4-5.0); Alkaline Phosphatase 73 U/L (45-117); BUN Blood Urea Nitrogen 10 mg/dL (7-18); Bicarbonate 25 mmol/L (21-32); Bilirubin Direct < 0.1 mg/dL (0-0.2); Bilirubin Total 0.4 mg/dL (0.2-1.0); Glucose Level 150 mg/dL (74-106); Magnesium 1.9 mg/dL (1.8-2.4); NT PRO-BNP 42 pg/mL (<125); Potassium 3.6 mmol/L (3.5-5.1); Protein, Total 6.8 g/dL (6.4-8.2); Sodium Level 145 mmol/L (136-145); Troponin (Emerg Dept Use Only) < 0.02 ng/mL (0.0-0.045)
--- NOTE | 2021-08-09 05:35 | ER ---
Nurse's Notes [facility] Name: Lola Copeland Age: 66 yrs Sex: Female : 1955 Arrival Date: 08/09/2021 Time: 03:51 Bed 16 Private MD: Diagnosis: Chest pain, unspecified Presentation: 08/09 03:56 Chief complaint: EMS states: they were toned out for report of pt with chest pain x 1 bb hour they administered aspirin 324 mg and started an IV. Coronavirus screen: At this time, the client does not indicate any symptoms associated with coronavirus-19. Ebola Screen: No symptoms or risks identified at this time. Initial Sepsis Screen: Does the patient meet any 2 criteria? No. Patient's initial sepsis screen is negative. Does the patient have a suspected source of infection? No. Patient's initial sepsis screen is negative. Risk Assessment: Do you want to hurt yourself or someone else? Patient reports no desire to harm self or others. Onset of symptoms was August 09, 2021. 03:56 Method Of Arrival: EMS: [facility] bb 03:56 Acuity: BINH 3 bb 04:01 Care prior to arrival: Medication(s) given: ASA, 81 mg, x 4, IV initiated. 20 GA, in bb the left antecubital area, Glucose check: 149. Historical: - Allergies: 03:58 Robaxin; bb 03:58 Erythromycin; bb - Home Meds: 03:58 Novolin R Sub-Q [Active]; Novolin N Sub-Q [Active]; Repatha Syringe subcutaneous bb [Active]; Xanax Oral [Active]; Omeprazole Oral [Active]; Lisinopril Oral [Active]; - Immunization history:: Adult Immunizations up to date, Client reports receiving the 2nd dose of the Covid vaccine, pfizer x 2 and moderna booster. - Social history:: Smoking status: unknown. - Family history:: not pertinent. - Hospitalizations: : No recent hospitalization is reported. Screenin:33 Abuse screen: Denies threats or abuse. Denies injuries from another. Nutritional lp1 screening: No deficits noted. Tuberculosis screening: No symptoms or risk factors identified. Fall Risk None identified. Assessment: 04:15 General: Appears in no apparent distress. comfortable, Behavior is calm, cooperative, lp1 appropriate for age. Pain: Complains of pain in chest Quality of pain is described as burning. Neuro: Level of Consciousness is awake, alert, obeys commands, Oriented to person, place, time, situation. Cardiovascular: Patient's skin is warm and dry. Rhythm is regular. Respiratory: Respiratory effort is even, unlabored, Denies shortness of breath. GI: Abdomen is non-distended, Reports flatulence, gaseousness. : No signs and/or symptoms were reported regarding the genitourinary system. EENT: No signs and/or symptoms were reported regarding the EENT system. Derm: Skin is pink, warm \T\ dry. Musculoskeletal: No deficits noted. 05:30 Reassessment: Patient appears in no apparent distress at this time. Patient is alert, lp1 oriented x 3, equal unlabored respirations, skin warm/dry/pink. Patient reports desire to go home, Dr. Bruner at bedside to discuss plan of care with patient Patient denies pain at this time. Patient states feeling better. Patient states symptoms have improved. Vital Signs: 03:56 BP 135 / 82; Pulse 82; Resp 16 S; Temp 97.6; Pulse Ox 95% on R/A; Weight 76.66 kg (R); bb Height 5 ft. 4 in. (162.56 cm) (R); Pain 3/10; 05:30 BP 108 / 70; Pulse 80; Resp 19; Pulse Ox 97% on R/A; Pain 0/10; lp1 03:56 Body Mass Index 29.01 (76.66 kg, 162.56 cm) bb ED Course: 03:51 Patient arrived in ED. da3 03:51 Rodolfo Bruner MD is Attending Physician. rn 03:58 Triage completed. bb 03:58 Arm band placed on Patient placed in an exam room, on a stretcher, on utility bagger, bb on pulse oximetry. EKG completed in triage. Results shown to . 04:04 XRAY Chest (1 view) In Process Unspecified. EDMS 04:15 Patient has correct armband on for positive identification. Placed in gown. Bed in low lp1 position. medical care evaluation specialist on. Pulse ox on. NIBP on. 04:20 Maintain EMS IV. Dressing intact. Site clean \T\ dry. Gauge \T\ site: 20g to L AC. lp 1 04:25 Initial lab(s) drawn, by me, sent to lab. lp1 04:33 Marisa Dean, RN is Primary Nurse. lp1 05:35 Gerald Hyman MD is Referral Physician. rn 05:37 No provider procedures requiring assistance completed. IV discontinued, No lp1 redness/swelling at site. Pressure dressing applied. Administered Medications: 04:20 Drug: GI Cocktail without - (Maalox Suspension 30 ml, Lidocaine Liquid 2 % 15 lp1 ml) Route: PO; 05:37 Follow up: Response: Marked relief of symptoms lp1 Outcome: 05:35 Discharge ordered by . rn 05:49 Discharged to home ambulatory, with significant other. lp1 05:49 Condition: good 05:49 Discharge instructions given to patient, Instructed on discharge instructions, follow up and referral plans. Demonstrated understanding of instructions, follow-up care. 05:49 Patient left the ED. lp1 Signatures: Dispatcher [employer] EDMS Nancy Tidwell RN RN bb Rodolfo Bruner MD MD rn Pena, Laura, RN RN lp1 Guille Alas RN RN da3
--- NOTE | 2021-08-09 05:35 | EDPHYS ---
Physician Documentation [facility] Name: Lola Copeland Age: 66 yrs Sex: Female : 1955 Arrival Date: 08/09/2021 Time: 03:51 Bed 16 Private MD: ED Physician Rodolfo Bruner HPI: 08/09 04:14 This 66 yrs old Female presents to ER via EMS with complaints of Chest pain. rn 04:14 The patient or guardian reports chest pain that is located primarily in the substernal rn area. Onset: 1 hour(s) ago. The pain radiates to the left arm, Associated signs and symptoms: Pertinent negatives: cough, diaphoresis, headache, shortness of breath, syncope, vomiting. The chest pain is described as a heaviness. Duration: The patient or guardian reports multiple episodes. Modifying factors: The symptoms are alleviated by nothing. the symptoms are aggravated by nothing. Severity of pain: At its worst the pain was moderate in the emergency department the pain has improved. The patient has experienced similar episodes in the past. The patient has not recently seen a physician. Patient reports chest pain that woke her up 1 hour prior to arrival, given aspirin by EMS with temporary resolution of pain. Currently now having 3 out of 10 chest pain. Reports told 6 years ago that had a blockage at a distal vessel that was not stented will. Denies any fever or sick symptoms. Reports had nachos last night and not sure if acid reflux or her heart.. Historical: - Allergies: 03:58 Robaxin; bb 03:58 Erythromycin; bb - Home Meds: 03:58 Novolin R Sub-Q [Active]; Novolin N Sub-Q [Active]; Repatha Syringe subcutaneous bb [Active]; Xanax Oral [Active]; Omeprazole Oral [Active]; Lisinopril Oral [Active]; - Immunization history:: Adult Immunizations up to date, Client reports receiving the 2nd dose of the Covid vaccine, pfizer x 2 and moderna booster. - Social history:: Smoking status: unknown. - Family history:: not pertinent. - Hospitalizations: : No recent hospitalization is reported. ROS: 04:14 Constitutional: Negative for fever, chills, and weight loss, Eyes: Negative for injury, rn pain, redness, and discharge, Neck: Negative for injury, pain, and swelling, Cardiovascular: Positive for chest pain Respiratory: Negative for shortness of breath, cough, wheezing, and pleuritic chest pain, Abdomen/GI: Negative for vomiting, diarrhea, and constipation, Back: Negative for injury and pain, MS/Extremity: Negative for injury and deformity, Skin: Negative for injury, rash, and discoloration, Neuro: Negative for headache, weakness, numbness, tingling, and seizure. Exam: 04:14 Constitutional: This is a well developed, well nourished patient who is awake, alert, rn and in no acute distress. Head/Face: Normocephalic, atraumatic. Eyes: Periorbital areas with no swelling, redness, or edema. Cardiovascular: Regular rate and rhythm. No pulse deficits. Respiratory: No increased work of breathing, no retractions or nasal flaring. Abdomen/GI: Soft, nontender, no masses Skin: Warm, dry MS/ Extremity: Pulses equal, no cyanosis. Neuro: Awake and alert, GCS 15 04:29 ECG was reviewed by the Attending Physician. rn Vital Signs: 03:56 BP 135 / 82; Pulse 82; Resp 16 S; Temp 97.6; Pulse Ox 95% on R/A; Weight 76.66 kg (R); bb Height 5 ft. 4 in. (162.56 cm) (R); Pain 3/10; 05:30 BP 108 / 70; Pulse 80; Resp 19; Pulse Ox 97% on R/A; Pain 0/10; lp1 03:56 Body Mass Index 29.01 (76.66 kg, 162.56 cm) bb MDM: 03:51 Patient medically screened. rn 05:32 Differential diagnosis: acute myocardial infarction, acute pericarditis, anxiety, rn coronary artery disease costochondritis, esophagitis, gastritis, gastroesophageal reflux disease (GERD), stable angina, unstable angina. The patient was not given aspirin in the Emergency Department. Administered by EMS. Data reviewed: vital signs, nurses notes, lab test result(s), EKG, radiologic studies, plain films, and as a result, I will discharge patient. Counseling: I had a detailed discussion with the patient and/or guardian regarding: the historical points, exam findings, and any diagnostic results supporting the discharge/admit diagnosis, lab results, radiology results, the need for outpatient follow up, to return to the emergency department if symptoms worsen or persist or if there are any questions or concerns that arise at home. Response to treatment: the patient's symptoms have resolved after treatment, the patient's condition has returned to base line, the patient is now symptom free, and as a result, I will discharge patient. Special discussion: Based on the patient's history, exam, and Dx evaluation, there is no indication for emergent intervention or inpatient Tx. It is understood by the patient/guardian that if the Sx's persist or worsen they need to return immediately for re-evaluation. I discussed with the patient/guardian in detail that at this point there is no indication for admission to the hospital. It is understood, however, that if the symptoms persist or worsen the patient needs to return immediately for re-evaluation. ED course: Labs unremarkable, troponin negative, no ischemia on ECG. Stable vital signs. Symptoms resolved after GI cocktail. Initially I convinced patient to stay for repeat troponin as she did not wish to be admitted at the time and she agreed. I was just notified by patient and family member that she wants to leave now feels fine and does not want to wait for repeat troponin. Understands the risks of leaving prior to a second troponin and failure to observe patient. Will DC home per patient's wishes and patient plans on calling Dr. Hyman in the morning. 08/09 03:54 Order name: Basic Metabolic Panel; Complete Time: 04:59 rn 08/09 03:54 Order name: CBC with Diff; Complete Time: 04:50 rn 08/09 03:54 Order name: LFT's; Complete Time: 04:59 rn 08/09 03:54 Order name: Magnesium; Complete Time: 04:59 rn 08/09 03:54 Order name: NT PRO-BNP; Complete Time: 04:59 rn 08/09 03:54 Order name: PT-INR; Complete Time: 04:50 rn 10 03:54 Order name: Troponin (emerg Dept Use Only); Complete Time: 04:59 rn 08/09 03:54 Order name: XRAY Chest (1 view) rn 08/09 03:54 Order name: EKG; Complete Time: 03:55 rn 08/09 03:54 Order name: Cardiac monitoring; Complete Time: 04:04 rn 08/09 03:54 Order name: EKG - Nurse/Tech; Complete Time: 04:13 rn 08/09 03:54 Order name: IV Saline Lock; Complete Time: 04:13 rn 08/09 03:54 Order name: Labs collected and sent; Complete Time: 04:04 rn 08/09 03:54 Order name: O2 Per Protocol; Complete Time: 04:04 rn 08/09 03:54 Order name: O2 Sat Monitoring; Complete Time: 04:04 rn EC:29 Rate is 80 beats/min. Rhythm is regular. Left axis deviation noted. QRS is positive in rn lead I and negative in lead aVF. ID interval is normal. QRS interval is normal. QT interval is normal. No Q waves. T waves are Normal. No ST changes noted. Clinical impression: NSR, LAD. Interpreted by me. Reviewed by me. Administered Medications: 04:20 Drug: GI Cocktail without - (Maalox Suspension 30 ml, Lidocaine Liquid 2 % 15 lp1 ml) Route: PO; 05:37 Follow up: Response: Marked relief of symptoms lp1 Disposition Summary: 08/09/21 05:35 Discharge Ordered Location: Home rn Problem: new rn Symptoms: have improved rn Condition: Stable rn Diagnosis - Chest pain, unspecified rn Followup: rn - With: Gerald Hyman MD - When: As needed - Reason: Recheck today's complaints, Re-evaluation by your physician Discharge Instructions: - Discharge Summary Sheet rn - Nonspecific Chest Pain, Adult rn - Pain Without a Known Cause rn Forms: - Medication Reconciliation Form rn - Thank You Letter rn - 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
[2021-08-09 05:56] VITALS: TEMP 97.6
[2021-08-09 05:58] VITALS: BP 108/70; O2SAT 97
--- NOTE | 2021-08-09 08:27 | RAD REPORT ---
EXAM DESCRIPTION: RAD - Chest Single View - 08/09/2021 4:04 am CLINICAL HISTORY: CHEST PAIN COMPARISON: October 2012 TECHNIQUE: AP portable chest image was obtained 08/09/2021 4:04 am . FINDINGS: No focal lung parenchymal process seen. Slightly increased density over the lateral lower left lung field is believed to be the affects of portable imaging and overlying breast soft tissue. Trachea is midline. Neurostimulator device overlies the lower thoracic spine. Heart and vasculature a re normal. No measurable pleural effusion and no pneumothorax. No acute bony abnormality seen. No acu te aortic findings suspected. IMPRESSION: No acute cardiopulmonary process.
== END 2021-08-09 05:49 | disposition home or self-care (01) ==
LOC: ER 03:49
DX: R07.9 Chest pain, unspecified (principal); Z88.3 Allergy status to other anti-infective agents; Z88.8 Allergy status to other drugs, medicaments and biological substances
CPT/HCPCS: 36415; 71045; 80048; 80076; 83735; 83880; 84484; 85025; 85610; 93005; 99284

== ENCOUNTER 2022-05-01 07:06 | Day surgery (SDC) | payer OTHER ==
[2022-04-28 10:29] LABS: SARS-CoV-2 Antigen Rapid Res Negative (Negative)
--- NOTE | 2022-04-29 08:16 | EKG ---
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
[2022-05-01] MEDS ORDERED: NA CHLORIDE 0.9% 1,000 ML ONE (07:38)
[2022-05-01] MEDS ORDERED: LIDOCAINE 1% MPF 5 ML VIAL ONE (07:48)
[2022-05-01] MEDS ORDERED: propofoL 200 MG/20 ML VIAL IV ONE (07:48)
[2022-05-01] MEDS ORDERED: EPINEPHRINE 1 MG/ML VIAL SQ ONE (08:30)
--- NOTE | 2022-05-01 08:43 | ENDO RPT ---
[address], [address] COLONOSCOPY PROCEDURE REPORT EXAM DATE: 05/01/2022 PATIENT NAME: Lola Copeland MR #: [id number] BIRTHDATE: 1955 ATTENDING: Brennan Basilio DR STATUS: outpatient GRAZING AIDE: Alba Chung RN, Jax Paredes [facility], and Alyx Dimas RN INDICATIONS: The patient is a 66 yr old Female here for a colonoscopy due to history of polyps PROCEDURE PERFORMED: Colonoscopy with directed submucosal injection(s) any substance, Colonoscopy with biopsy - cold polypectomy, Colonoscopy with biopsy, and Colonoscopy for control of bleeding MEDICATIONS: Per Anesthesia. ESTIMATED BLOOD LOSS: None CONSENT: The patient understands the risks and benefits of the procedure and understands that these risks include, but are not limited to: sedation, allergic reaction, infection, perforation and/or bleeding. Alternative means of evaluation and treatment include, among others: physical exam, x-rays, and/or surgical intervention. The patient elects to proceed with this endoscopic procedure. DESCRIPTION OF PROCEDURE: During intra-op preparation period all mechanical medical equipment was checked for proper function. Hand hygiene and appropriate measures for infection prevention was taken. Procedure, possible complications, alternatives including, but not limited to possibility of bleeding, perforation, tear, infection, sepsis, need for surgery, need for blood transfusion, were explained to the patient. After the risks, benefits and alternatives of the procedure were thoroughly explained, Informed consent was verified, confirmed and timeout was successfully executed by the treatment team. The patient was placed in the left lateral position. A digital rectal exam was performed and revealed internal hemorrhoids, A digital rectal exam was performed and revealed external hemorrhoids, and A digital rectal exam was performed and revealed several skin tags. After appropriate level of anesthesia, the scope was passed. The EC-[id number] ([id number]) endoscope was introduced through the anus and advanced to the cecum, which was identified by both the appendix and ileocecal valve. The quality of the prep was poor. The instrument was then slowly withdrawn as the colon was fully examined. Scope withdrawal time was 15 minutes. COLON FINDINGS: Three semi-pedunculated polyps were found in the descending colon and at the hepatic flexure. A polypectomy was performed using snare cautery, with a cold snare and with cold forceps. The resection was complete, the polyp tissue was completely retrieved and sent to histology. A single non-bleeding, round, shallow and clean-based ulcer ranging between 3-5 mm in size with a visible vessel was found in the sigmoid colon. Submucosal injection of 1ml of epinephrine 1:10,000 was performed around the bleeding site with good treatment effect. Small internal and external hemorrhoids were found. Retroflexed views revealed no abnormalities. The scope was then completely withdrawn from the patient and the procedure terminated. ADVERSE EVENTS: There were no complications. IMPRESSIONS: 1. Three semi-pedunculated polyps were found in the descending colon and at the hepatic flexure 2. Proctitis RECOMMENDATIONS: 1. follow-up: office 2 week(s) 2. Monitor for any evidence of rectal bleeding. 3. yearly hemoquant 4. hemorrhoidal hygiene 5. fiber rich diet 6. await biopsy results 7. avoid NSAIDS for 2 weeks RECALL: Return in 1 year(s) for Colonoscopy, pending biopsy results. Brennan Basilio DR eSigned: Brennan Basilio DR 05/01/2022 8:42 AM cc: CPT CODES: ICD9 CODES: PATIENT NAME: Lola Copeland MR#: [id number]
[2022-05-01 11:03] VITALS: BP 133/59; TEMP 96.6; O2SAT 97
== END 2022-05-01 09:30 | disposition home or self-care (01) ==
LOC: OR 07:06
PROVIDERS: ATTEND Surgery
PROC: 0DBL8ZX Excision of Transverse Colon, Via Natural or Artificial Opening Endoscopic, Diagnostic (ICD-10-PCS; 2022-05-01)
PROC: 0DBL8ZX Excision of Transverse Colon, Via Natural or Artificial Opening Endoscopic, Diagnostic (ICD-10-PCS; 2022-05-01)
PROC: 0W3P8ZZ Control Bleeding in Gastrointestinal Tract, Via Natural or Artificial Opening Endoscopic (ICD-10-PCS; 2022-05-01)
PROC: 0DBM8ZX Excision of Descending Colon, Via Natural or Artificial Opening Endoscopic, Diagnostic (ICD-10-PCS; principal; 2022-05-01 08:00)
DX: Z12.11 Encounter for screening for malignant neoplasm of colon (principal); Z86.010 Personal history of colon polyps; D12.4 Benign neoplasm of descending colon; D12.3 Benign neoplasm of transverse colon; K62.89 Other specified diseases of anus and rectum; K64.8 Other hemorrhoids; K64.4 Residual hemorrhoidal skin tags; Z20.822 Contact with and (suspected) exposure to COVID-19
CPT/HCPCS: 45385; 45380; 45382; 93005; 36415; 82947; 88305; 87811; J2704; J0171; J7030; J2001